=== PATIENT | female | born 1935 | race Caucasian/White ===

== ENCOUNTER → 2017-01-23 | Outpatient (CLI) | payer MEDICARE, BC ==
--- NOTE | 2017-01-24 09:44 | MR ---
EXAMINATION TYPE: MR lumbar spine wo con DATE OF EXAM: 01/23/2017 7:04 PM COMPARISON: Prior lumbar spine MRI 13 May 2015 HISTORY: Low back pain, stenosis, radiculopathy TECHNIQUE: Multiplanar, multisequence images of the lumbar spine were acquired. L1-L2: Mild facet arthropathy, no significant central stenosis or foraminal encroachment. Broad-based disc bulge causes minimal anterior mass effect on the thecal sac L2-L3: Circumferential posterior extension of endplate disc complex results in some left-sided forami nal encroachment greater than right, there is mild anterior mass effect on the thecal sac, minimal ce ntral stenosis. Facet arthropathy with hypertrophy of the ligamentum flavum encroaches on the lateral recesses L3-L4: Broad-based posterior disc bulge causes mild anterior mass effect on the thecal sac. Facet art hropathy with hypertrophy of the ligamentum flavum causes lateral recess stenosis, there is trefoil a ppearance of the thecal sac, circumferential extension encroaches somewhat on the foramina left great er than right. L4-L5: Facet arthropathy with hypertrophy of the ligamentum flavum causes a trefoil appearance of the thecal sac, small central posterior disc herniation combines with the listhesis to cause moderate sp inal stenosis similar to prior exam L5-S1: Facet arthropathy with hypertrophy of ligamentum flavum encroaches upon the lateral recess gre ater on the right, circumferential posterior disc bulge extends laterally and encroaches somewhat on the neural foramina greater on the right as on prior, there is mild anterior mass effect on the theca l sac and possibly on the proximal S1 nerve roots Lumbar segments are intact. No paraspinal masses are identified. Conus medullaris has a normal appe arance. Anterolisthesis grade 1 L4-5 is again noted. There is multilevel spondylosis. Loss of disc he ight and signal at the intervertebral levels with endplate discogenic marrow signal change is again s een. There is a spinal curvature. The conus is at T12. Superior endplate L2 shows a Schmorl's node to the right of midline as on prior. IMPRESSION: Spinal stenosis most significant at L4-5, multilevel degenerative disc disease and facet arthropathy, foraminal encroachment as described. Findings are similar to prior exam.
== END | disposition home or self-care (01) ==
LOC: RADMRIMAIN 18:14
PROVIDERS: ATTEND Physical Medicine & Rehabilitation
DX: M48.06 Spinal stenosis, lumbar region (principal); M51.36 Other intervertebral disc degeneration, lumbar region; M46.96 Unspecified inflammatory spondylopathy, lumbar region
CPT/HCPCS: 72148

== ENCOUNTER → 2017-02-14 | Outpatient (CLI) | payer MEDICARE, BC ==
[2017-02-14 17:07] LABS: Calcium 9.5 mg/dL (8.4-10.2); Potassium 5.4 mmol/L (3.5-5.1)
--- NOTE | 2017-02-14 18:46 | CT ---
EXAMINATION TYPE: CT abdomen pelvis w con DATE OF EXAM: 02/14/2017 6:32 PM COMPARISON: 01/28/2015 HISTORY: Patient complains of generalized abdominal pain and right sided abdominal mass. CT DLP: 397.5 mGycm Automated exposure control for dose reduction was used. TECHNIQUE: Helical acquisition of images was performed from the lung bases through the pelvis. CONTRAST: Performed with Oral Contrast and with IV Contrast, patient injected with 100 mL of Omnipaque 300. FINDINGS: Lung bases are clear of consolidation. There is no pleural effusion. Abdominal aorta is atheromatous. There are clips from cholecystectomy. Spleen appears normal. There is no pancreatic mass. There are i s no discrete liver defect. There is no retroperitoneal adenopathy. Kidneys show satisfactory contras t opacification. There is no hydronephrosis. There is no adrenal mass. There is apparent aortoiliac s tent. Bladder distends smoothly. I see no evidence of a bowel obstruction. There is evidence for minimal wa ll thickening involving the sigmoid colon. There are no dilated loops. There is some retained fecal m aterial in the transverse colon and right colon. The bony structures are intact. There is no compression fracture in the lumbar spine. IMPRESSION: ATHEROSCLEROTIC VASCULAR DISEASE. MILD CONSTIPATION. MINIMAL SIGMOID COLON WALL THICKENING THAT IS LE SS NOTICEABLE THAN OLD CT SCAN OF 01/28/2015. THIS COULD RELATE TO SOME PERSISTENT MILD COLITIS. THERE ARE SURGICAL CLIPS ON THE ANTERIOR ABDOMINAL WALL AND FOCAL THICKENING ON THE RIGHT SIDE IN THE MID ABDOMEN THAT COULD RELATE TO SOME SCAR TISSUE THAT IS PALPABLE DUE TO DECREASED SUBCUTANEOUS FAT COMPARED TO THE OLD EXAM.
== END | disposition home or self-care (01) ==
LOC: RADCTMAIN 16:23
PROVIDERS: ATTEND Internal Medicine
DX: R10.84 Generalized abdominal pain (principal); R63.4 Abnormal weight loss; Z98.890 Other specified postprocedural states
CPT/HCPCS: 80048; 74177; 36415; Q9967

== ENCOUNTER 2017-03-01 11:59 | Day surgery (SDC) | payer MEDICARE, BC ==
[2017-02-27 13:58] VITALS: BMI 23.6
[~2017-03-01 11:59] MED LIST: LACTATED RINGERS 1,000 ML IV SCH; LIDOCAINE 1% 20 ML VIAL (10MG/ML) FOR IV START INTRADERMA PRN
[2017-03-01 12:20] VITALS: RESP 16; TEMP 98.1
[2017-03-01] MEDS ORDERED: PROPOFOL 10 MG/ML 20 ML VIAL IV ONE (12:47)
--- NOTE | 2017-03-01 13:18 | P.PCN ---
Date of Procedure: 03/01/17 Procedure(s) Performed: Brief history: Patient is a pleasant 81-year-old white female, scheduled for an elective upper endoscopy as well as colonoscopy as a part of evaluation of abdominal pain, abdominal bloating and progressive weight loss of 20 pounds in the last 6 months duration. She does have long-standing history of ulcerative colitis which appears to be in clinical remission. She is not on any maintenance medications for the last 2 years. Procedure performed: Esophagogastroduodenoscopy with biopsy Colonoscopy with biopsy Preoperative diagnosis: Abdominal pain, abdominal bloating Progressive weight loss Long-standing history of ulcerative colitis Anesthesia: MAC Procedure: After informed consent was obtained from the patient was brought into the endoscopy unit and IV sedation was administered by anesthesia under continuous monitoring. Initially upper endoscopy was done. The Olympus GF 160 video endoscope was inserted inserted into the mouth and esophagus intubated without any difficulty and was gradually advanced into the stomach and duodenum and carefully examined. The bulb and second part of the duodenum appeared normal. The scope was then withdrawn into the stomach adequately insufflated with air and upon careful examination the antrum and body, cardia and fundus appeared normal. The scope was then withdrawn into the esophagus. The GE junction was located at 40 cm to the incisors. It appeared regular with no erythema erosions or ulcerations. Rest of the esophagus appeared normal. Patient tolerated the procedure well. At this time the patient continued to remain sedation. Initial digital rectal examination was normal. Olympus CF 160 video colonoscope was then inserted into the rectum and gradually advanced to the cecum without any difficulty. Careful examination was performed as the scope was gradually being withdrawn. The prep was excellent. The cecum, ascending colon, transverse colon, descending colon, appeared normal. There was mild colitis noted in the sigmoid colon and rectum. In the mid rectum there was a thick pedunculated, 3-4 cm polypoid lesion identified with central ulceration and multiple biopsies were done from this area to rule out neoplasm. Retroflexion was performed in the rectum and no lesions were noted. Patient tolerated the procedure well. Impression: 1. Upper endoscopy revealed mild antral gastritis. 2. Colonoscopy revealed mild active colitis involving the rectum and sigmoid colon and rectal polypoid lesion measuring 3-4 cm in size with a thick peduncular, status post multiple biopsies to rule out neoplasm. Recommendations: Findings of this examination were discussed with the patient as well as her family. She was advised to follow with the biopsy results. She'll be seen in office in one to 2 weeks.
[2017-03-01 13:58] VITALS: BP 136/64; PULSE 67
== END 2017-03-01 14:19 | disposition home or self-care (01) ==
LOC: ORWHC2ENDO 11:59
PROVIDERS: ATTEND Internal Medicine Gastroenterology
DX: K51.20 Ulcerative (chronic) proctitis without complications (principal); K52.9 Noninfective gastroenteritis and colitis, unspecified; K29.50 Unspecified chronic gastritis without bleeding; K62.1 Rectal polyp; Z79.02 Long term (current) use of antithrombotics/antiplatelets; Z79.891 Long term (current) use of opiate analgesic; Z79.899 Other long term (current) drug therapy; R63.4 Abnormal weight loss; Z88.1 Allergy status to other antibiotic agents; Z88.8 Allergy status to other drugs, medicaments and biological substances; I25.10 Atherosclerotic heart disease of native coronary artery without angina pectoris; I10 Essential (primary) hypertension; E78.5 Hyperlipidemia, unspecified; Z87.891 Personal history of nicotine dependence; I73.9 Peripheral vascular disease, unspecified; Z86.73 Personal history of transient ischemic attack (TIA), and cerebral infarction without residual deficits; Z87.11 Personal history of peptic ulcer disease; Z95.1 Presence of aortocoronary bypass graft
CPT/HCPCS: 88305; 88342; 45380; 43239; J2704

== ENCOUNTER 2017-05-10 07:59 | Day surgery (SDC) | payer MEDICARE, BC ==
[2017-05-09 10:19] VITALS: BMI 23.6
[2017-05-10] MEDS ORDERED: NA PHOS,M-B/NA PHOS,DI-BA 133 ML ENEMA RECTAL ONE ×2 (09:00→09:30)
[2017-05-10 09:06] VITALS: RESP 16; TEMP 97.1
[2017-05-10] MEDS ORDERED: PROPOFOL 10 MG/ML 20 ML VIAL IV ONE (10:04)
--- NOTE | 2017-05-10 10:39 | P.PCN ---
Date of Procedure: 05/10/17 Preoperative Diagnosis: Postoperative Diagnosis: Procedure(s) Performed: BRIEF HISTORY: Patient is a 81-year-old pleasant white female, scheduled for an elective flexible sigmoidoscopy as a part of evaluation of rectal bleeding for the last few weeks duration. She does have long-standing history of ulcerative colitis diagnosed many years ago. She recently had a colonoscopy 9 weeks ago and was noted to have active colitis involving the rectal sigmoid colon and a large 3 cm polyp in the proximal rectum which was biopsied. The biopsies revealed inflammatory polyp with no evidence of dysplasia. The patient was treated with steroids for 6 weeks and initially the symptoms resolve however after she stopped the steroids about 3 weeks ago she started having more rectal bleeding. She does have history of atrial fibrillation and has been on the left was which has been on hold for the last 2 days. She is scheduled for a flexible sigmoidoscopy for endoscopy polypectomy of the rectal polyp. PROCEDURE PERFORMED: Flexible sigmoidoscopy with snare polypectomy and resolution clip placement. PREOPERATIVE DIAGNOSIS: History of ulcerative colitis, large rectal polyp noted on recent colonoscopy 2 months ago IV sedation per Anesthesia. PROCEDURE: After informed consent was obtained, the patient, was brought into the endoscopy unit. IV sedation was administered by Anesthesia under continuous monitoring. Digital rectal examination was normal. Initially the Olympus CF- 160 flexible video colonoscope was then inserted in the rectum, gradually advanced into the splenic flexure. Careful examination was performed as the scope was gradually being withdrawn. Descending colon, sigmoid colon, and rectum had mucosal erythema and friability consistent with active colitis. In the mid rectum there was a large 3-4 cm polyp identified which was very friable and oozing. Proceed with piecemeal snare polypectomy and complete polypectomy was accomplished. Following the polypectomy there was brisk oozing noted at the base of the polyp and hence resolution clips were placed and total of 3 clips were placed into good hemostasis was achieved. There was active colitis involving the rectum also. Retroflexion was performed in the rectum and no lesions were seen. The patient tolerated the procedure well. IMPRESSION: Active left-sided colitis 3 cm friable polyp in the midrectum status post piecemeal snare polypectomy as described above with some bleeding post polypectomy, status post resolution clip placement with good hemostasis RECOMMENDATIONS: Findings of this examination were discussed with the patient as well as her family. She was advised to hold off on the eliquis for 3 more days. Since she does have active colitis I will start her back on prednisone 30 mg daily and she will be advised to taper it by 5 mg every 2 weeks. She will continue on Lialda 4 tablets daily. She'll be seen in the office in 4 weeks. Implants: Indications for Procedure: Operative Findings: Description of Procedure:
[2017-05-10 10:54] VITALS: BP 166/71; PULSE 72
== END 2017-05-10 11:22 | disposition home or self-care (01) ==
LOC: ORWHC2ENDO 07:59
PROVIDERS: ATTEND Internal Medicine Gastroenterology
DX: K62.1 Rectal polyp (principal); K52.9 Noninfective gastroenteritis and colitis, unspecified; Z87.19 Personal history of other diseases of the digestive system; K51.90 Ulcerative colitis, unspecified, without complications; Z86.010 Personal history of colon polyps; I48.91 Unspecified atrial fibrillation; I10 Essential (primary) hypertension; E78.5 Hyperlipidemia, unspecified; I25.10 Atherosclerotic heart disease of native coronary artery without angina pectoris; Z86.73 Personal history of transient ischemic attack (TIA), and cerebral infarction without residual deficits; Z79.01 Long term (current) use of anticoagulants; Z79.891 Long term (current) use of opiate analgesic; Z79.899 Other long term (current) drug therapy; Z91.09 Other allergy status, other than to drugs and biological substances
CPT/HCPCS: 88305; 45338; J2704; 45334

== ENCOUNTER 2017-07-10 22:08 | Inpatient (IN) | payer MEDICARE, BC ==
[2017-07-10] MEDS ORDERED: MECLIZINE 12.5 MG TAB PO STA (22:41)
[2017-07-10 22:55] LABS: Basophils # (A) 0.1 k/uL (0-0.2); Basophils % (A) 1 %; CH 30.1; CHCM 33.7; Eosinophils # (A) 0.6 k/uL (0-0.7); Eosinophils % (A) 6 %; HCT 36.5 % (34.0-46.0); HDW 2.55; HGB 11.9 gm/dL (11.4-16.0); Luc # (Auto) 0.34; Luc % (Auto) 3; Lymphocytes % (A) 19 %; MCH 29.3 pg (25.0-35.0); MCHC 32.7 g/dL (31.0-37.0); MCV 89.7 fL (80.0-100.0); Mean Platelet Volume 8.4; Monocytes # (A) 0.6 k/uL (0-1.0); Monocytes % (A) 6 %; Neutrophils # (A) 6.5 k/uL (1.3-7.7); Neutrophils % (A) 65 %; RBC 4.07 m/uL (3.80-5.40); RDW 14.8 % (11.5-15.5); WBC 10.1 k/uL (3.8-10.6); WBC (Perox) 10.41
[2017-07-10 22:59] LABS: INR 1.1 (<1.2)
--- NOTE | 2017-07-10 23:06 | ED ---
General Adult HPI - General Chief complaint: Dizziness Stated complaint: off balance/nausea/throat problem Time Seen by Provider: 07/10/17 22:16 Source: patient, family, RN notes reviewed Mode of arrival: wheelchair Limitations: no limitations - History of Present Illness Initial comments: 81-year-old female presents for evaluation of lightheadedness, dizziness, and nausea. Patient was in bed, she did move her head and began feeling very dizzy with blurred vision. She has a sensation of objects were moving. She had no vomiting but significant nausea. Patient has past medical history of CVA. According to her daughter she has had some symptoms of lightheadedness for several months. Patient does report a left-sided chest pain which was lateral sharp in nature, worse with movement. Denies any central chest pressure. Denies fever or chills. She has had some nasal congestion, and bilateral fullness in her ears. Denies any hearing changes. Denies any loss of vision. Denies focal weakness. - Related Data Home Medications Medication Instructions Recorded Confirmed Atorvastatin [Lipitor] 20 mg PO HS 11/25/14 07/10/17 Apixaban [Eliquis] 2.5 mg PO BID 02/27/17 07/10/17 Losartan Potassium [Cozaar] 100 mg PO DAILY 07/10/17 07/10/17 Allergies Allergy/AdvReac Type Severity Reaction Status Date / Time ciprofloxacin HCl Allergy Mild Itching Verified 07/10/17 22:43 [From Cipro] adhesive AdvReac Mild Itching Verified 07/10/17 22:43 Review of Systems ROS Statement: Those systems with pertinent positive or pertinent negative responses have been documented in the HPI. ROS Other: All systems not noted in ROS Statement are negative. Past Medical History Past Medical History: Coronary Artery Disease (CAD), CVA/TIA, GI Bleed, Hearing Disorder / Deafness, Hyperlipidemia, Hypertension, Musculoskeletal Disorder, Osteoarthritis (OA) Additional Past Medical History / Comment(s): PVD. PEPTIC ULCER DISEASE. ULCERATIVE COLITIS. 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 History of Any Multi-Drug Resistant Organisms: None Reported Past Surgical History: Appendectomy, Coronary Bypass/CABG, Hysterectomy, Joint Replacement, Tonsillectomy Additional Past Surgical History / Comment(s): Carotid Artery on Left. BILATERAL STENTS FOR PVD. QUAD CABG 1995. COLONOSCOPY, EGD. LT SHOULDER REPLACEMENT. polyp removed from rectum Past Anesthesia/Blood Transfusion Reactions: No Reported Reaction Past Psychological History: No Psychological Hx Reported Smoking Status: Former smoker Past Alcohol Use History: None Reported Past Drug Use History: None Reported - Past Family History Sister(s) Family Medical History: Cancer Father Family Medical History: No Reported History Additional Family Medical History / Comment(s): . General Exam Limitations: no limitations General appearance: alert, in no apparent distress Head exam: Present: atraumatic, normocephalic Eye exam: Present: normal appearance, PERRL, EOMI ENT exam: Present: mucous membranes moist, TM's normal bilaterally Neck exam: Present: normal inspection. Absent: tenderness, meningismus Respiratory exam: Present: normal lung sounds bilaterally. Absent: respiratory distress Cardiovascular Exam: Present: regular rate, irregular rhythm GI/Abdominal exam: Present: soft. Absent: distended, tenderness Extremities exam: Present: normal inspection, normal capillary refill. Absent: pedal edema Neurological exam: Present: alert, oriented X3, CN II-XII intact, motor sensory deficit, other (Left [id number]-[id number] ataxia) Psychiatric exam: Present: normal affect, normal mood Skin exam: Present: warm, dry. Absent: cyanosis, diaphoretic Course Vital Signs 07/10/17 07/10/17 07/11/17 22:10 23:10 00:19 Temperature 97.6 F Pulse Rate 86 71 76 Respiratory 18 16 17 Rate Blood Pressure 155/66 141/59 151/75 O2 Sat by Pulse 98 99 97 Oximetry EKG Findings - EKG Comments: EKG Findings:: EKG shows sinus rhythm with PVCs and PACs, ventricular rate 81, ID interval 124, QRS duration 88, QTC 464, no signs of ischemia Medical Decision Making - Medical Decision Making 81 yo female presenting with chief complaint of vertigo and lightheadedness as well as nausea and vomiting. Patient's had these symptoms for several months. She does report some symptoms suggesting peripheral vertigo including ear fullness and some nasal congestion, however on examination she has finger-nose ataxia in the left upper extremity. She also has had symptoms for some time. This is concerning for central vertigo. She does have a history of previous CVA , CT does show encephalomalacia right occipital lobe. There is no intracranial hemorrhage or new acute infarction. Chest x-ray shows very mild pulmonary vascular congestion. Laboratory studies reveal normal white blood cell count and pulled, stable hemoglobin 11.9, initial troponin is 0.0-1 which is normal. This level will be repeated once to ensure stability. All of the laboratory studies are unremarkable. EKG shows no ST segment elevation or depression, there is PVCs and PACs. Vital signs are stable on the emergency department. Patient is given an aspirin and will be admitted for neurology evaluation. Diagnosis: Concern for central vertigo - Lab Data Result diagrams: 07/10/17 22:29 07/10/17 22:29 Lab Results 07/10/17 07/10/17 07/10/17 Range/Units 22:29 22:29 22:29 WBC 10.1 (3.8-10.6) k/uL RBC 4.07 (3.80-5.40) m/uL Hgb 11.9 (11.4-16.0) gm/dL Hct 36.5 (34.0-46.0) % MCV 89.7 (80.0-100.0) fL MCH 29.3 (25.0-35.0) pg MCHC 32.7 (31.0-37.0) g/dL RDW 14.8 (11.5-15.5) % Plt Count 222 (150-450) k/uL Neutrophils % 65 % Lymphocytes % 19 % Monocytes % 6 % Eosinophils % 6 % Basophils % 1 % Neutrophils # 6.5 (1.3-7.7) k/uL Lymphocytes # 2.0 (1.0-4.8) k/uL Monocytes # 0.6 (0-1.0) k/uL Eosinophils # 0.6 (0-0.7) k/uL Basophils # 0.1 (0-0.2) k/uL PT (9.0-12.0) sec INR (<1.2) Sodium 137 (137-145) mmol/L Potassium 4.3 (3.5-5.1) mmol/L Chloride 106 (98-107) mmol/L Carbon Dioxide 24 (22-30) mmol/L Anion Gap 7 mmol/L BUN 17 (7-17) mg/dL Creatinine 0.90 (0.52-1.04) mg/dL Est GFR (MDRD) Af Amer >60 (>60 ml/min/1.73 sqM) Est GFR (MDRD) Non-Af 60 (>60 ml/min/1.73 sqM) Glucose 111 H (74-99) mg/dL Plasma Lactic Acid Daryl 0.9 (0.7-2.0) mmol/L Calcium 8.9 (8.4-10.2) mg/dL Magnesium 1.8 (1.6-2.3) mg/dL Total Bilirubin 0.3 (0.2-1.3) mg/dL AST 16 (14-36) U/L ALT 25 (9-52) U/L Alkaline Phosphatase 68 (38-126) U/L Troponin I (0.000-0.034) ng/mL Total Protein 5.9 L (6.3-8.2) g/dL Albumin 3.2 L (3.5-5.0) g/dL Urine Color Urine Appearance (Clear) Urine pH (5.0-8.0) Ur Specific [place] (1.001-1.035) Urine Protein (Negative) Urine Glucose (UA) (Negative) Urine Ketones (Negative) Urine Blood (Negative) Urine Nitrite (Negative) Urine Bilirubin (Negative) Urine Urobilinogen (<2.0) mg/dL Ur Leukocyte Esterase (Negative) Urine RBC (0-5) /hpf Urine WBC (0-5) /hpf Urine Bacteria (None) /hpf Urine Mucus (None) /hpf 07/10/17 07/10/17 07/10/17 Range/Units 22:29 22:29 23:55 WBC (3.8-10.6) k/uL RBC (3.80-5.40) m/uL Hgb (11.4-16.0) gm/dL Hct (34.0-46.0) % MCV (80.0-100.0) fL MCH (25.0-35.0) pg MCHC (31.0-37.0) g/dL RDW (11.5-15.5) % Plt Count (150-450) k/uL Neutrophils % % Lymphocytes % % Monocytes % % Eosinophils % % Basophils % % Neutrophils # (1.3-7.7) k/uL Lymphocytes # (1.0-4.8) k/uL Monocytes # (0-1.0) k/uL Eosinophils # (0-0.7) k/uL Basophils # (0-0.2) k/uL PT 11.0 (9.0-12.0) sec INR 1.1 (<1.2) Sodium (137-145) mmol/L Potassium (3.5-5.1) mmol/L Chloride (98-107) mmol/L Carbon Dioxide (22-30) mmol/L Anion Gap mmol/L BUN (7-17) mg/dL Creatinine (0.52-1.04) mg/dL Est GFR (MDRD) Af Amer (>60 ml/min/1.73 sqM) Est GFR (MDRD) Non-Af (>60 ml/min/1.73 sqM) Glucose (74-99) mg/dL Plasma Lactic Acid Daryl (0.7-2.0) mmol/L Calcium (8.4-10.2) mg/dL Magnesium (1.6-2.3) mg/dL Total Bilirubin (0.2-1.3) mg/dL AST (14-36) U/L ALT (9-52) U/L Alkaline Phosphatase (38-126) U/L Troponin I 0.021 (0.000-0.034) ng/mL Total Protein (6.3-8.2) g/dL Albumin (3.5-5.0) g/dL Urine Color Yellow Urine Appearance Clear (Clear) Urine pH 5.0 (5.0-8.0) Ur Specific [place] 1.009 (1.001-1.035) Urine Protein Negative (Negative) Urine Glucose (UA) Negative (Negative) Urine Ketones Negative (Negative) Urine Blood Negative (Negative) Urine Nitrite Negative (Negative) Urine Bilirubin Negative (Negative) Urine Urobilinogen <2.0 (<2.0) mg/dL Ur Leukocyte Esterase Small H (Negative) Urine RBC <1 (0-5) /hpf Urine WBC 3 (0-5) /hpf Urine Bacteria Rare H (None) /hpf Urine Mucus Rare H (None) /hpf Disposition Clinical Impression: Vertigo Disposition: ADMITTED IP TO THIS [facility] Condition: Stable Referrals: Champ Merritt MD [Primary Care Provider] - 1-2 days Decision to Admit Reason: Admit from EC Decision Date: 07/11/17 Decision Time: 00:36
[2017-07-10 23:07] LABS: ALT 25 U/L (9-52); AST 16 U/L (14-36); Alkaline Phosphatase 68 U/L (38-126); Anion Gap 7 mmol/L; Blood Urea Nitrogen 17 mg/dL (7-17); Calcium 8.9 mg/dL (8.4-10.2); Carbon Dioxide 24 mmol/L (22-30); Chloride 106 mmol/L (98-107); Glucose 111 mg/dL (74-99); Magnesium 1.8 mg/dL (1.6-2.3); Non-African American GFR(MDRD) 60 (>60 ml/min/1.73 sqM); Potassium 4.3 mmol/L (3.5-5.1); Sodium 137 mmol/L (137-145); Total Bilirubin 0.3 mg/dL (0.2-1.3); Total Protein 5.9 g/dL (6.3-8.2)
--- NOTE | 2017-07-10 23:39 | CT ---
EXAM: CT Head Without Intravenous Contrast CLINICAL HISTORY: Syncope, weakness TECHNIQUE: Axial computed tomography images of the head/brain without intravenous contrast. DLP is 1036.00 mGy-cm. This CT exam was performed using one or more of the following dose reduction techniques: automated exposure control, adjustment of the mA and/or kV according to patient size, and/or use of iterative reconstruction technique. COMPARISON: 11/25/2014. FINDINGS: Brain: New encephalomalacic changes are seen involving the right occipital lobe, likely from prior infarct. No evidence of an acute transcortical infarct or acute intracranial hemorrhage. Patchy and confluent areas of decreased attenuation are seen in the bilateral periventricular and subcortical white matter, essentially unchanged, likely representing moderate/severe microangiopathy. Age appropriate senescent changes seen. No edema. Ventricles: Unremarkable. No pathologic ventriculomegaly. Bones/joints: Unremarkable. No acute fracture. Soft tissues: Unremarkable. Vasculature: The carotid siphons are calcified. Sinuses: Mild mucosal thickening of the ethmoid air cells is suspected, similar to prior study, which may represent sinus disease. Mastoid air cells: Unremarkable as visualized. No mastoid effusion. IMPRESSION: New encephalomalacic changes involving the right occipital lobe, likely from prior infarct. Essentially unchanged moderate/severe microangiopathy. No definitive evidence of acute transcortical infarct. No evidence of acute intracranial hemorrhage. If there is further clinical concern, consider short-term interval CT of the head versus MRI of the brain for follow-up. Mild ethmoid sinusitis likely present, similar to prior study.
--- NOTE | 2017-07-10 23:51 | XR ---
EXAM: XR Chest, 2 Views CLINICAL HISTORY: Reason: Syncope TECHNIQUE: Frontal and lateral views of the chest. COMPARISON: 01/29/2015 FINDINGS: Lungs: Hazy prominence of the interstitial markings with mild peribronchial cuffing is seen, likely representing mild pulmonary edema/CHF. Underlying emphysema is again suggested. Pleural space: Unremarkable. No pneumothorax. Heart: Patient is again noted to be status post CABG. The heart is likely at upper limits of normal. Mediastinum: Unremarkable. Bones/joints: Patient status post left total shoulder arthroplasty. Unchanged right shoulder. Vasculature: Unchanged atherosclerotic )vascular calcifications involving the visualized aorta. Tubes, lines and devices: Monitor leads overlie the chest limiting evaluation. IMPRESSION: Patient status post CABG. The heart appears to be at the upper limits of normal. Hazy prominence of the interstitial markings with mild peribronchial cuffing, likely representing mild pulmonary edema/CHF, not seen on prior study.
[2017-07-11] MEDS ORDERED: ASPIRIN 325 MG TAB PO STA (00:05)
[2017-07-11 00:23] LABS: Appearance,Urine Clear (Clear); Bacteria,Urine Rare /hpf; Bilirubin,Urine Negative (Negative); Glucose,Urine (UA) Negative (Negative); Ketones,Urine Negative (Negative); Leukocyte Esterase,Urine Small (Negative); Mucus,Urine Rare /hpf; Nitrite,Urine Negative (Negative); Particle Count 4796; Protein,Urine Negative (Negative); RBC,Urine <1 /hpf (0-5); Specific Gravity,Urine 1.009 (1.001-1.035); UA Billing (MACRO vs. MICRO) MICRO; Urobilinogen,Urine <2.0 mg/dL (<2.0); WBC,Urine 3 /hpf (0-5)
[2017-07-11] MEDS ORDERED: ACETAMINOPHEN TAB 325 MG TAB PO PRN (00:29)
[2017-07-11] MEDS ORDERED: ONDANSETRON 4 MG/2 ML VIAL IVP PRN (00:29)
[2017-07-11] MEDS ORDERED: NALOXONE 0.4 MG/ML 1 ML VIAL IV PRN (00:29)
[2017-07-11] MEDS ORDERED: oxyCODONE-APAP 5-325MG 1 EACH TAB PO PRN (00:29)
[2017-07-11] MEDS ORDERED: SODIUM CHLORIDE 0.9% 1,000 ML IV SCH (00:30)
[2017-07-11 01:18] VITALS: RESP 18
[2017-07-11 02:03] VITALS: BMI 24.5
[2017-07-11 13:21] VITALS: BP 166/69; PULSE 86; TEMP 97.2
--- NOTE | 2017-07-11 17:27 | P.HPIM ---
History of Present Illness H&P Date: 07/11/17 (Discharge summary as well) Chief Complaint: Dizziness 81-year-old female presents to the emergency room with complaints of an isolated incident of the dizziness which was noted as patient was finally readjust herself in bed last night. Patient noted this vague episode of the room spinning around her self and feeling of her head getting bigger. Patient however rested back and was able to be comfortable and lost her symptoms. Patient continued to have recurrent symptoms thereafter with any change in head positions Patient was able to ambulate in the hospital without much difficulty. Today patient states that she is back to her baseline the symptoms lasted less than a few minutes. States that she continues to have these symptoms with any change in the position however are significantly milder Patient has a history of a CVA in the past with some residual symptoms of facial disorientation and difficulty with the finding words. 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 A computed tomography scan in the emergency room was noted to have encephalomalacia. However no acute infarct was noted there is some concern for vascular disease At this time patient denies having any headaches change in vision from her baseline, nausea chest pain vomiting diarrhea Review of systems 14 point review of systems was done nonpertinent then all as mentioned above Physical exam Gen. 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 #4 dyslipidemia #5 hypertension with a pressure slightly elevated however patient is also slightly agitated and is anxious to go home #6 history of a GI bleed Plan Patient's symptoms at this time appeared to be secondary to vertigo is able to ambulate without much difficulty no focal deficits are noted does not appear to have central vertigo patient has been investigated in the past and was monitored in the hospital close to 20 hours Discussed in regards to her progressive worsening of her higher function 1 differential could be vascular dementia due to the rapidity of her symptoms This would be deferred to an outpatient follow-up with her neurologist. We'll defer use of an antiplatelet agent as well to that time patient is only on Eliquis this is likely secondary to the previous history of a suspected GI bleed We'll be discharged home in stable condition CODE STATUS during the admission was DO NOT RESUSCITATE Past Medical History Past Medical History: Coronary Artery Disease (CAD), CVA/TIA, GI Bleed, Hearing Disorder / Deafness, Hyperlipidemia, Hypertension, Musculoskeletal Disorder, Osteoarthritis (OA) Additional Past Medical History / Comment(s): PVD. PEPTIC ULCER DISEASE. ULCERATIVE COLITIS. 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 History of Any Multi-Drug Resistant Organisms: None Reported Past Surgical History: Appendectomy, Coronary Bypass/CABG, Hysterectomy, Joint Replacement, Tonsillectomy Additional Past Surgical History / Comment(s): Carotid Artery on Left. BILATERAL STENTS FOR PVD. QUAD CABG 1995. COLONOSCOPY, EGD. LT SHOULDER REPLACEMENT. polyp removed from rectum Past Anesthesia/Blood Transfusion Reactions: No Reported Reaction Past Psychological History: No Psychological Hx Reported Smoking Status: Former smoker Past Alcohol Use History: None Reported Additional Past Alcohol Use History / Comment(s): SMOKED FOR 40 YEARS., QUIT IN 1991. STATES 1 PACK COULD LAST 1 MONTH. Past Drug Use History: None Reported - Past Family History Sister(s) Family Medical History: Cancer Father Family Medical History: No Reported History Additional Family Medical History / Comment(s): . Medications and Allergies Home Medications Medication Instructions Recorded Confirmed Type Atorvastatin [Lipitor] 20 mg PO HS 11/25/14 07/10/17 History Apixaban [Eliquis] 2.5 mg PO BID 02/27/17 07/10/17 History Losartan Potassium [Cozaar] 100 mg PO DAILY 07/10/17 07/10/17 History Allergies Allergy/AdvReac Type Severity Reaction Status Date / Time ciprofloxacin HCl Allergy Mild Itching Verified 07/10/17 22:43 [From Cipro] adhesive AdvReac Mild Itching Verified 07/10/17 22:43 Physical Exam Vitals: Vital Signs Temp Pulse Pulse Resp BP BP Pulse Ox 07/11/17 12:00 97.2 F L 86 18 166/69 96 07/11/17 08:00 96 F L 76 18 149/67 95 07/11/17 03:04 18 07/11/17 01:40 96.8 F L 79 18 167/67 95 07/11/17 01:16 98.4 F 69 18 156/67 97 07/11/17 00:19 76 17 151/75 97 07/10/17 23:10 71 16 141/59 99 07/10/17 22:10 97.6 F 86 18 155/66 98 Intake and Output 07/11/17 07/11/17 07/11/17 06:59 14:59 22:59 Intake Total 100 Balance 100 Intake: Intake, IV Titration 100 Amount Sodium Chloride 0.9% 1, 100 000 ml @ 20 mls/hr IV . Q24H [facility] Rx#:[id number] Other: # Voids 1 2 Weight 63 kg Results CBC & Chem 7: 07/10/17 22:29 07/10/17 22:29 Labs: Abnormal Lab Results - Last 24 Hours (Table) 07/10/17 07/10/17 Range/Units 22:29 23:55 Glucose 111 H (74-99) mg/dL Total Protein 5.9 L (6.3-8.2) g/dL Albumin 3.2 L (3.5-5.0) g/dL Ur Leukocyte Esterase Small H (Negative) Urine Bacteria Rare H (None) /hpf Urine Mucus Rare H (None) /hpf Thrombosis Risk Factor Assmnt - Choose All That Apply Any of the Below Risk Factors Present?: Yes Each Factor Represents 1 point: Swollen legs (current) Each Risk Factor Represents 3 Points: Age 75 years or older Each Risk Factor Represents 5 Points: Stroke (< 1 month) Thrombosis Risk Factor Assessment Total Risk Factor Score: 9 Thrombosis Risk Factor Assessment Level: High Risk
[2017-07-11] MEDS ORDERED: APIXABAN 2.5 MG TABLET PO SCH (21:00)
[2017-07-12] MEDS ORDERED: LOSARTAN 50 MG TAB PO SCH (09:00)
== END 2017-07-11 17:15 | disposition home or self-care (01) | DRG 149 ==
LOC: EC 22:08 → 6SEL 07-11 00:29
PROVIDERS: ADMIT Hospitalist; ATTEND Hospitalist
DX: H81.399 Other peripheral vertigo, unspecified ear (principal); G93.89 Other specified disorders of brain; I69.998 Other sequelae following unspecified cerebrovascular disease; I73.9 Peripheral vascular disease, unspecified; E78.5 Hyperlipidemia, unspecified; H91.90 Unspecified hearing loss, unspecified ear; I10 Essential (primary) hypertension; I25.10 Atherosclerotic heart disease of native coronary artery without angina pectoris; M19.90 Unspecified osteoarthritis, unspecified site; H53.9 Unspecified visual disturbance; Z66 Do not resuscitate; Z79.01 Long term (current) use of anticoagulants; Z79.899 Other long term (current) drug therapy; Z87.891 Personal history of nicotine dependence; Z95.1 Presence of aortocoronary bypass graft; Z96.612 Presence of left artificial shoulder joint; Z91.09 Other allergy status, other than to drugs and biological substances
CPT/HCPCS: 36415; 70450; 71020; 80053; 81001; 83605; 83735; 84484; 85025; 85610; 93005; 99285

== ENCOUNTER → 2017-09-11 | Outpatient (CLI) | payer MEDICARE, BC ==
--- NOTE | 2017-09-11 15:10 | MR ---
EXAMINATION TYPE: MR brain wo con DATE OF EXAM: 09/11/2017 1:38 PM COMPARISON: 11/26/2014 HISTORY: VERTIGO, MORALES FINDINGS: The ventricles, basal cisterns and sulci overlying the cerebral convexities are moderately enlarged. There is evidence of moderate confluent periventricular white matter ischemic demyelination. Remote occipital insults. Remote deep white matter insults are also noted. No acute edema is seen on diffusion weighted imaging. There is no evidence for midline shift or mass effect. Acute intracranial hemorrhage or extra-axial collection is not evident. The paranasal sinuses and mastoid air cells are well-aerated. Mucoperiosteal thickening of the ethmoi d air cells. IMPRESSION: Age-related atrophic and chronic small vessel ischemic change. No acute intracranial process at this time.
== END | disposition home or self-care (01) ==
LOC: RADMRIMAIN 12:49
PROVIDERS: ATTEND Psychiatry & Neurology Pain Medicine
DX: I67.82 Cerebral ischemia (principal); G31.9 Degenerative disease of nervous system, unspecified; H81.13 Benign paroxysmal vertigo, bilateral; Z88.1 Allergy status to other antibiotic agents; Z91.040 Latex allergy status
CPT/HCPCS: 70551

== ENCOUNTER 2019-12-15 05:29 | Inpatient (IN) | payer MEDICARE, BC ==
[2019-12-15] MEDS ORDERED: MORPHINE SULFATE 2 MG/ML SYRINGE IVP STA (06:18)
[2019-12-15] MEDS ORDERED: SODIUM CHLORIDE 0.9% 1,000 ML IV STA (06:18)
--- NOTE | 2019-12-15 06:28 | ED ---
Dizziness HPI - General Chief Complaint: Dizziness Stated Complaint: Dizziness, Fall Time Seen by Provider: 12/15/19 06:03 Source: patient, EMS, RN notes reviewed, old records reviewed Mode of arrival: EMS Limitations: no limitations - History of Present Illness Initial Comments: Patient is an 84-year-old female presents emergency Department after an episode of dizziness and fall. Patient is complaining of headache, questionable loss of consciousness. She is on blood thinner, L Antonio. Patient reports that she is now having some pain between her shoulder blades and back, and reports that she's had a productive cough for the past week. Patient states that she was not sitting on the ground for long. She also complains of some dysuria. - Related Data Home Medications Medication Instructions Recorded Confirmed Atorvastatin [Lipitor] 20 mg PO HS 11/25/14 07/10/17 Apixaban [Eliquis] 2.5 mg PO BID 02/27/17 07/10/17 Losartan Potassium [Cozaar] 100 mg PO DAILY 07/10/17 07/10/17 Allergies Allergy/AdvReac Type Severity Reaction Status Date / Time ciprofloxacin HCl Allergy Mild Itching Verified 07/10/17 22:43 [From Cipro] adhesive AdvReac Mild Itching Verified 07/10/17 22:43 Review of Systems ROS Statement: Those systems with pertinent positive or pertinent negative responses have been documented in the HPI. ROS Other: All systems not noted in ROS Statement are negative. Past Medical History Past Medical History: Coronary Artery Disease (CAD), CVA/TIA, GI Bleed, Hearing Disorder / Deafness, Hyperlipidemia, Hypertension, Musculoskeletal Disorder, Osteoarthritis (OA) Additional Past Medical History / Comment(s): PVD. PEPTIC ULCER DISEASE. ULCERATIVE COLITIS. 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 History of Any Multi-Drug Resistant Organisms: None Reported Past Surgical History: Appendectomy, Coronary Bypass/CABG, Hysterectomy, Joint Replacement, Tonsillectomy Additional Past Surgical History / Comment(s): Carotid Artery on Left. BILATERAL STENTS FOR PVD. QUAD CABG 1995. COLONOSCOPY, EGD. LT SHOULDER REPLACEMENT. polyp removed from rectum Past Anesthesia/Blood Transfusion Reactions: No Reported Reaction Past Psychological History: No Psychological Hx Reported Smoking Status: Former smoker Past Alcohol Use History: None Reported Past Drug Use History: None Reported - Past Family History Sister(s) Family Medical History: Cancer Father Family Medical History: No Reported History Additional Family Medical History / Comment(s): . General Exam - General Exam Comments Initial Comments: 84-year-old female. Alert and oriented 3. Limitations: no limitations General appearance: alert, in no apparent distress Head exam: Present: atraumatic, normocephalic, normal inspection Eye exam: Present: normal appearance, PERRL, EOMI. Absent: scleral icterus, conjunctival injection, periorbital swelling ENT exam: Present: normal exam, mucous membranes moist Neck exam: Present: normal inspection. Absent: tenderness, meningismus, lymphadenopathy Respiratory exam: Present: rhonchi, other (Wheezing). Absent: normal lung sounds bilaterally, respiratory distress, wheezes, rales, stridor Cardiovascular Exam: Present: regular rate, normal rhythm, normal heart sounds. Absent: systolic murmur, diastolic murmur, rubs, gallop, clicks GI/Abdominal exam: Present: soft, normal bowel sounds. Absent: distended, tenderness, guarding, rebound, rigid Extremities exam: Present: normal inspection, full ROM, normal capillary refill. Absent: tenderness, pedal edema, joint swelling, calf tenderness Back exam: Present: normal inspection Neurological exam: Present: alert, oriented X3, CN II-XII intact Psychiatric exam: Present: normal affect, normal mood Skin exam: Present: warm, dry, intact, normal color. Absent: rash Course Vital Signs 12/15/19 12/15/19 12/15/19 05:31 06:45 07:00 Temperature 98.9 F Pulse Rate 71 101 H 86 Respiratory 16 19 Rate Blood Pressure 115/68 136/68 136/68 O2 Sat by Pulse 95 90 L 87 L Oximetry 12/15/19 12/15/19 12/15/19 07:30 08:00 08:49 Temperature Pulse Rate 82 84 92 Respiratory 17 25 H Rate Blood Pressure 139/73 139/75 O2 Sat by Pulse 96 94 L Oximetry 12/15/19 09:05 Temperature Pulse Rate 92 Respiratory Rate Blood Pressure O2 Sat by Pulse Oximetry Medical Decision Making - Medical Decision Making 84-year-old female presents emergency department today for fall, syncopal episdoe and hitting head in her bathroom. She is on blood thinners questions that she had her head. CT of the brain and C-spine reviewed and negative for any fracture or intracranial hemorrhage. Patient reports she has been weak, with a bad cough as well as dysuria for the past 7 days. Patient at this time has evidence of urinary tract infection. EKG showed no ST elevation. The Patient did have an elevated troponin of 0.056. Initiated on heparin. She does have a significant productive cough. I did start the Patient on Rocephin for urinary tract infection, and concern for pneumonia. Chest x-ray was showing chronic changes without any acute process. She was given a breathing treatment did have some clearing of her congestion. Patient was given IV Solu-Medrol as well. At this time Patient will be admitted for UTI, weakness, syncopal episode and elevated troponin. Urine culture and blood culture were completed. All questions answered. - Lab Data Result diagrams: 12/15/19 06:00 12/15/19 06:00 Lab Results 12/15/19 12/15/19 12/15/19 Range/Units 06:00 06:00 06:00 WBC 7.7 (3.8-10.6) k/uL RBC 4.64 (3.80-5.40) m/uL Hgb 13.2 (11.4-16.0) gm/dL Hct 41.5 (34.0-46.0) % MCV 89.5 (80.0-100.0) fL MCH 28.6 (25.0-35.0) pg MCHC 31.9 (31.0-37.0) g/dL RDW 13.1 (11.5-15.5) % Plt Count 152 (150-450) k/uL Neutrophils % 82 % Lymphocytes % 7 % Monocytes % 5 % Eosinophils % 0 % Basophils % 3 % Neutrophils # 6.4 (1.3-7.7) k/uL Lymphocytes # 0.6 L (1.0-4.8) k/uL Monocytes # 0.4 (0-1.0) k/uL Eosinophils # 0.0 (0-0.7) k/uL Basophils # 0.2 (0-0.2) k/uL PT (9.0-12.0) sec INR (<1.2) APTT (22.0-30.0) sec Sodium 133 L (137-145) mmol/L Potassium 3.7 (3.5-5.1) mmol/L Chloride 104 (98-107) mmol/L Carbon Dioxide 19 L (22-30) mmol/L Anion Gap 10 mmol/L BUN 18 H (7-17) mg/dL Creatinine 0.83 (0.52-1.04) mg/dL Est GFR (CKD-EPI)AfAm 75 (>60 ml/min/1.73 sqM) Est GFR (CKD-EPI)NonAf 65 (>60 ml/min/1.73 sqM) Glucose 112 H (74-99) mg/dL Plasma Lactic Acid Daryl 1.0 (0.7-2.0) mmol/L Calcium 8.0 L (8.4-10.2) mg/dL Magnesium 1.8 (1.6-2.3) mg/dL Total Bilirubin 0.6 (0.2-1.3) mg/dL AST 39 H (14-36) U/L ALT 15 (4-34) U/L Alkaline Phosphatase 57 (38-126) U/L Troponin I (0.000-0.034) ng/mL Total Protein 5.6 L (6.3-8.2) g/dL Albumin 2.9 L (3.5-5.0) g/dL Urine Color Urine Appearance (Clear) Urine pH (5.0-8.0) Ur Specific [place] (1.001-1.035) Urine Protein (Negative) Urine Glucose (UA) (Negative) Urine Ketones (Negative) Urine Blood (Negative) Urine Nitrite (Negative) Urine Bilirubin (Negative) Urine Urobilinogen (<2.0) mg/dL Ur Leukocyte Esterase (Negative) Urine RBC (0-5) /hpf Urine WBC (0-5) /hpf Ur Squamous Epith Cells (0-4) /hpf Urine Bacteria (None) /hpf Urine Mucus (None) /hpf 12/15/19 12/15/19 12/15/19 Range/Units 06:00 06:00 07:35 WBC (3.8-10.6) k/uL RBC (3.80-5.40) m/uL Hgb (11.4-16.0) gm/dL Hct (34.0-46.0) % MCV (80.0-100.0) fL MCH (25.0-35.0) pg MCHC (31.0-37.0) g/dL RDW (11.5-15.5) % Plt Count (150-450) k/uL Neutrophils % % Lymphocytes % % Monocytes % % Eosinophils % % Basophils % % Neutrophils # (1.3-7.7) k/uL Lymphocytes # (1.0-4.8) k/uL Monocytes # (0-1.0) k/uL Eosinophils # (0-0.7) k/uL Basophils # (0-0.2) k/uL PT 10.3 (9.0-12.0) sec INR 1.0 (<1.2) APTT 29.6 (22.0-30.0) sec Sodium (137-145) mmol/L Potassium (3.5-5.1) mmol/L Chloride (98-107) mmol/L Carbon Dioxide (22-30) mmol/L Anion Gap mmol/L BUN (7-17) mg/dL Creatinine (0.52-1.04) mg/dL Est GFR (CKD-EPI)AfAm (>60 ml/min/1.73 sqM) Est GFR (CKD-EPI)NonAf (>60 ml/min/1.73 sqM) Glucose (74-99) mg/dL Plasma Lactic Acid Daryl (0.7-2.0) mmol/L Calcium (8.4-10.2) mg/dL Magnesium (1.6-2.3) mg/dL Total Bilirubin (0.2-1.3) mg/dL AST (14-36) U/L ALT (4-34) U/L Alkaline Phosphatase (38-126) U/L Troponin I 0.056 H* (0.000-0.034) ng/mL Total Protein (6.3-8.2) g/dL Albumin (3.5-5.0) g/dL Urine Color Yellow Urine Appearance Cloudy H (Clear) Urine pH 5.5 (5.0-8.0) Ur Specific [place] 1.026 (1.001-1.035) Urine Protein 1+ H (Negative) Urine Glucose (UA) Negative (Negative) Urine Ketones Negative (Negative) Urine Blood Moderate H (Negative) Urine Nitrite Positive H (Negative) Urine Bilirubin Negative (Negative) Urine Urobilinogen <2.0 (<2.0) mg/dL Ur Leukocyte Esterase Large H (Negative) Urine RBC 20 H (0-5) /hpf Urine WBC 46 H (0-5) /hpf Ur Squamous Epith Cells <1 (0-4) /hpf Urine Bacteria Many H (None) /hpf Urine Mucus Rare H (None) /hpf 12/15/19 07:03 EKG shows sinus rhythm with sinus arrhythmia occasional PVCs. Possible anterior infarct age indeterminate. Abnormal EKG. Jugular rate of 99 beats were minute. OK interval is 1:30 milliseconds. QRS duration is 96 ms. QT QTc is 372/477 ms. - Radiology Data Radiology results: report reviewed No acute fracture dislocation evident cervical spine. No acute cranial hemorrhage mass effect or midline shift. Chronic small vessel ischemia evidence of prior cerebral vascular accidents. Age-related atrophy. Disposition Clinical Impression: Syncope, NSTEMI (non-ST elevated myocardial infarction), UTI (urinary tract infection), Weakness, Cough Disposition: ADMITTED IP TO THIS HOSP Condition: Stable Is patient prescribed a controlled substance at d/c from ED?: No Referrals: Champ Merritt MD [Primary Care Provider] - 1-2 days Time of Disposition: 09:44
[2019-12-15 06:32] LABS: Basophils # (A) 0.2 k/uL (0-0.2); Basophils % (A) 3 %; Eosinophils % (A) 0 %; HCT 41.5 % (34.0-46.0); HGB 13.2 gm/dL (11.4-16.0); Lymphocytes # (A) 0.6 k/uL (1.0-4.8); Lymphocytes % (A) 7 %; MCH 28.6 pg (25.0-35.0); MCHC 31.9 g/dL (31.0-37.0); MCV 89.5 fL (80.0-100.0); Mean Platelet Volume 8.6; Monocytes # (A) 0.4 k/uL (0-1.0); Monocytes % (A) 5 %; Neutrophils # (A) 6.4 k/uL (1.3-7.7); Neutrophils % (A) 82 %; Platelet Count 152 k/uL (150-450); RBC 4.64 m/uL (3.80-5.40); RDW 13.1 % (11.5-15.5); WBC 7.7 k/uL (3.8-10.6)
[2019-12-15 06:41] LABS: Albumin 2.9 g/dL (3.5-5.0); Magnesium 1.8 mg/dL (1.6-2.3); Partial Thromboplastin Time 29.6 sec (22.0-30.0); Potassium 3.7 mmol/L (3.5-5.1); Prothrombin Time 10.3 sec (9.0-12.0); Total Bilirubin 0.6 mg/dL (0.2-1.3); Total Protein 5.6 g/dL (6.3-8.2)
[2019-12-15 07:47] LABS: Appearance,Urine Cloudy (Clear); Bacteria,Urine Many /hpf; Bilirubin,Urine Negative (Negative); Blood,Urine Moderate (Negative); Color,Urine Yellow; Glucose,Urine (UA) Negative (Negative); Ketones,Urine Negative (Negative); Leukocyte Esterase,Urine Large (Negative); Mucus,Urine Rare /hpf; Nitrite,Urine Positive (Negative); PH, Urine 5.5 (5.0-8.0); Protein,Urine 1+ (Negative); RBC,Urine 20 /hpf (0-5); Specific Gravity,Urine 1.026 (1.001-1.035); Squamous Epithelial Cell,Urine <1 /hpf (0-4); Urobilinogen,Urine <2.0 mg/dL (<2.0); WBC,Urine 46 /hpf (0-5)
[2019-12-15] MEDS ORDERED: cefTRIAXone IN SWFI 1,000 MG/10 ML SYRINGE IVP STA (08:10)
--- NOTE | 2019-12-15 08:27 | CT ---
EXAMINATION TYPE: CT brain meganine wo con DATE OF EXAM: 12/15/2019 COMPARISON: CT brain 07/10/2017 HISTORY: Fall loss of consciousness CT DLP: 1537.7 mGycm Automated exposure control for dose reduction was used. TECHNIQUE: CT scan of the head and cervical spine are performed without contrast. FINDINGS: There is no acute intracranial hemorrhage, mass effect, or midline shift identified. The ventricles and sulci are within normal limits in size. The globes are intact and the visualized sin uses are clear. There are cerebral vascular calcifications. Cortical atrophy is present. Encephalomal acia suspected at the inferior aspect of left cerebellar hemisphere is an interval change, bilateral occipital lobes show stable low-attenuation. Periventricular white matter shows patchy low attenuatio n. Atrophy shows a similar appearance. Cervical spine is visualized in its entirety from C1 through upper thoracic levels and demonstrates n ear anatomic alignment without evidence of acute fracture or dislocation. There is multilevel spondyl osis. Multilevel facet arthropathy changes present. Prevertebral soft tissue appears within normal l imits. The C1-C2 articulation is unremarkable. Emphysematous changes are present in the upper lobes . Dense atherosclerotic calcifications present in carotid bulbs. IMPRESSION: 1. There is no acute fracture or dislocation evident in the cervical spine. 2. No acute intracranial hemorrhage, mass effect, or midline shift is seen. Chronic small vessel isch emia, evidence of prior cerebrovascular accidents. Age-related atrophy.
[2019-12-15] MEDS ORDERED: methylPREDNISolone SOD SUCCI 125 MG/2 ML VIAL IV STA (08:35)
[2019-12-15] MEDS ORDERED: IPRATROPIUM-ALBUTEROL 3 ML NEB INHALATION STA (08:35)
[2019-12-15] MEDS ORDERED: HEPARIN SODIUM,PORCINE 5,000 UNIT/ML 1 ML VIAL IV PRN (08:38)
[2019-12-15] MEDS ORDERED: HEPARIN SODIUM,PORCINE 5,000 UNIT/ML 1 ML VIAL IV ONE (08:38)
--- NOTE | 2019-12-15 09:27 | XR ---
EXAMINATION TYPE: XR chest 2V DATE OF EXAM: 12/15/2019 COMPARISON: 07/10/2017 HISTORY: Weakness and shortness of breath TECHNIQUE: Frontal and lateral views of the chest are obtained. FINDINGS: Similar-appearing, enlargement of the ascending thoracic aorta in comparison to the prior lateral 2017. Extensive atheromatous changes of the thoracic aorta are seen. Cardia mediastinal silho uette is enlarged but stable. Diffuse osseous demineralization is seen with left-sided humeral arthro plasty. No focal consolidation, pleural effusion or pneumothorax. IMPRESSION: Chronic changes with no acute cardiopulmonary process.
[2019-12-15] MEDS ORDERED: NITROGLYCERIN SL TABS 0.4 MG TAB SUBLINGUAL PRN (09:45)
[2019-12-15] MEDS ORDERED: MORPHINE SULFATE 4 MG/ML SYRINGE IV PRN (09:45)
[2019-12-15] MEDS ORDERED: ASPIRIN 81 MG PO STA (09:45)
[2019-12-15] MEDS ORDERED: cefTRIAXone IN SWFI 1,000 MG/10 ML SYRINGE IVP SCH (10:00)
[2019-12-15] MEDS: HEPARIN SOD,PORK IN 0.45% NACL 25,000 UNIT in 0.45% NACL 1 250ML.BAG IV SCH (10:13)
[2019-12-15] MEDS ORDERED: SODIUM CHLORIDE 0.9% 1,000 ML IV SCH (13:15)
[2019-12-15] MEDS: IPRATROPIUM-ALBUTEROL 3 ML NEB INHALATION SCH ×3 (14:20→20:31)
[2019-12-15] MEDS: ATORVASTATIN 20 MG TAB PO SCH (21:19)
--- NOTE | 2019-12-15 23:07 | P.HPIM ---
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 Patient was washing hands after getting up from the toilet and suddenly felt dizzy and fell on the floor. She did lose consciousness briefly. Patient denied any complaints of chest pain. Was having some shortness of breath. Denied any fever or chills. Patient has been having chest congestion and cough without sputum production for the past few days. As per her daughter at bedside patient has not been feeling well for the past 2 weeks. Patient was also having right lower abdominal, flank pain along with nausea for about 2-3 weeks. Denied any dysuria or hematuria. Patient did have a urinary tract infection last time about 2 years ago. No complaints of headache. No orthopnea no PND. No leg swelling. No vomiting or diarrhea. Denied any sick contacts at home. CT head and cervical spine showed no acute fracture or dislocation. No acute intracranial hemorrhage, mass effect, or midline shift is seen. Chronic small vessel ischemia. Evidence of prior CVA. Age related atrophy. Chest x-ray showed no acute cardio pulmonary process EKG showed sinus rhythm with sinus arrhythmia. Troponin 0.056 and 0.049 Sodium 133, WBC 7.7, hemoglobin 13.2 Urinalysis showed nitrite positive, large leukocyte esterase and elevated RBCs and WBCs. Review of Systems Constitutional: Patient denies any fever or chills . Generalized weakness. No weight loss. Abdomen: Patient denied nausea vomiting and diarrhea and abdominal pain. Cardiovascular: Patient denies any chest pain or short of breath no palpitations. Respiratory: Patient does have cough without sputum production. Mild shortness of breath Neurologic: Patient denied any numbness or tingling headache. Musculoskeletal: Patient denies any complaints of joint swelling or deformity. Skin: Negative Psychiatric: Negative Endocrine: No heat or cold intolerance. No recent weight gain. Genitourinary: No dysuria or hematuria. All other 14 point ROS negative except the above Past Medical History Past Medical History: Coronary Artery Disease (CAD), CVA/TIA, GI Bleed, Hearing Disorder / Deafness, Hyperlipidemia, Hypertension, Musculoskeletal Disorder, O steoarthritis (OA) Additional Past Medical History / Comment(s): PVD. PEPTIC ULCER DISEASE. ULCERATIVE COLITIS. 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 History of Any Multi-Drug Resistant Organisms: None Reported Past Surgical History: Appendectomy, Coronary Bypass/CABG, Hysterectomy, Joint Replacement, Tonsillectomy Additional Past Surgical History / Comment(s): Carotid Artery on Left. BILATERAL STENTS FOR PVD. QUAD CABG 1995. COLONOSCOPY, EGD. LT SHOULDER REPLACEMENT. polyp removed from rectum Past Anesthesia/Blood Transfusion Reactions: No Reported Reaction Past Psychological History: No Psychological Hx Reported Smoking Status: Former smoker Past Alcohol Use History: None Reported Past Drug Use History: None Reported - Past Family History Sister(s) Family Medical History: Cancer Father Family Medical History: No Reported History Additional Family Medical History / Comment(s): . Medications and Allergies Home Medications Medication Instructions Recorded Confirmed Type Atorvastatin [Lipitor] 20 mg PO HS 11/25/14 12/15/19 History Apixaban [Eliquis] 2.5 mg PO BID 02/27/17 12/15/19 History Losartan [Cozaar] 50 mg PO BID 12/15/19 12/15/19 History Allergies Allergy/AdvReac Type Severity Reaction Status Date / Time ciprofloxacin HCl Allergy Mild Itching Verified 07/10/17 22:43 [From Cipro] adhesive AdvReac Mild Itching Verified 07/10/17 22:43 Physical Exam Vitals: Vital Signs Temp Pulse Resp BP Pulse Ox 12/15/19 12:04 97 18 92 L 12/15/19 12:00 100 9 L 92 L 12/15/19 11:30 89 15 108/58 91 L 12/15/19 11:00 94 16 108/58 12/15/19 10:30 102 H 17 107/72 91 L 12/15/19 10:00 17 124/77 91 L 12/15/19 09:30 18 119/66 94 L 12/15/19 09:05 92 12/15/19 09:00 92 17 133/73 100 12/15/19 08:49 92 12/15/19 08:30 89 11 L 144/67 96 12/15/19 08:00 84 25 H 139/75 94 L 12/15/19 07:30 82 17 139/73 96 12/15/19 07:00 86 136/68 87 L 12/15/19 06:45 101 H 19 136/68 90 L 12/15/19 05:31 98.9 F 71 16 115/68 95 Intake and Output 12/14/19 12/15/19 12/15/19 22:59 06:59 14:59 Other: Weight 68.039 kg PHYSICAL EXAMINATION: Patient is lying in the bed comfortably, no acute distress, awake alert and oriented.. HEENT: Normocephalic. Neck is supple. Pupils reactive. Nostrils clear. Oral cavity is moist. Ears reveal no drainage. Neck reveals no JVD, carotid bruits, or thyromegaly. CHEST EXAMINATION: Trachea is central. Symmetrical expansion. Bibasilar diminished air entry. Prolonged expiration. Lung carrero clear to auscultation and percussion. CARDIAC: Normal S1, S2 with no gallops. No murmurs ABDOMEN: Soft. Bowel sounds normal. No organomegaly. No abdominal bruits. Extremities: reveal no edema. No clubbing or cyanosis Neurologically awake, alert, oriented x3 with well-coordinated movements. No focal deficits noted Skin: No rash or skin lesions. Psychiatric: Coperative. Nonsuicidal Musculoskeletal: No joint swelling or deformity. Normal range of motion. Results CBC & Chem 7: 12/15/19 06:00 12/15/19 06:00 Labs: Abnormal Lab Results - Last 24 Hours (Table) 12/15/19 12/15/19 12/15/19 Range/Units 06:00 06:00 06:00 Lymphocytes # 0.6 L (1.0-4.8) k/uL Sodium 133 L (137-145) mmol/L Carbon Dioxide 19 L (22-30) mmol/L BUN 18 H (7-17) mg/dL Glucose 112 H (74-99) mg/dL Calcium 8.0 L (8.4-10.2) mg/dL AST 39 H (14-36) U/L Troponin I 0.056 H* (0.000-0.034) ng/mL Total Protein 5.6 L (6.3-8.2) g/dL Albumin 2.9 L (3.5-5.0) g/dL Urine Appearance (Clear) Urine Protein (Negative) Urine Blood (Negative) Urine Nitrite (Negative) Ur Leukocyte Esterase (Negative) Urine RBC (0-5) /hpf Urine WBC (0-5) /hpf Urine Bacteria (None) /hpf Urine Mucus (None) /hpf 12/15/19 Range/Units 07:35 Lymphocytes # (1.0-4.8) k/uL Sodium (137-145) mmol/L Carbon Dioxide (22-30) mmol/L BUN (7-17) mg/dL Glucose (74-99) mg/dL Calcium (8.4-10.2) mg/dL AST (14-36) U/L Troponin I (0.000-0.034) ng/mL Total Protein (6.3-8.2) g/dL Albumin (3.5-5.0) g/dL Urine Appearance Cloudy H (Clear) Urine Protein 1+ H (Negative) Urine Blood Moderate H (Negative) Urine Nitrite Positive H (Negative) Ur Leukocyte Esterase Large H (Negative) Urine RBC 20 H (0-5) /hpf Urine WBC 46 H (0-5) /hpf Urine Bacteria Many H (None) /hpf Urine Mucus Rare H (None) /hpf Microbiology - Last 24 Hours (Table) 12/15/19 07:35 Urine Culture - Preliminary Urine,Catheterized Thrombosis Risk Factor Assmnt - DVT/VTE Prophylaxis DVT/VTE Prophylaxis: Pharmacologic Prophylaxis ordered Assessment and Plan Assessment: Dizziness and syncope. Possible orthostatic hypotension. Acute urinary tract infection Elevated troponin level. Possible type II [place]. Hypovolemic hyponatremia Coronary artery disease with history of CABG-4 vessel in 1995 History of TIAs/CVA with no residual weakness Hearing disorder/deafness Hypertension Hyperlipidemia Osteoarthritis Peripheral vascular disease Peptic ulcer disease History of ulcerative colitis Previous history of smoking DVT prophylaxis. Patient on heparin drip Patient will be continued on telemetry monitoring. Continue with gentle hydration and antibiotics the form of ceftriaxone. Follow-up urine culture report. Patient was started on heparin drip due to elevated troponin level and cardiology was consulted. Continue with aspirin and statins. We will hold blood pressure medications, losartan which she takes at home due to hypotension. Further recommendations based on the clinical course. Prognosis guarded with multiple medical problems and comorbid conditions. Time with Patient: Greater than 30
[2019-12-16] MEDS: IPRATROPIUM-ALBUTEROL 3 ML NEB INHALATION SCH ×6 (01:36→21:17)
[2019-12-16] MEDS ORDERED: IPRATROPIUM-ALBUTEROL 3 ML NEB INHALATION PRN (01:39)
[2019-12-16 06:50] LABS: Basophils % (A) 0 %; Eosinophils % (A) 0 %; HCT 38.8 % (34.0-46.0); HGB 12.5 gm/dL (11.4-16.0); Lymphocytes # (A) 0.7 k/uL (1.0-4.8); Lymphocytes % (A) 22 %; MCH 28.8 pg (25.0-35.0); MCHC 32.1 g/dL (31.0-37.0); MCV 89.6 fL (80.0-100.0); Mean Platelet Volume 9.1; Monocytes # (A) 0.2 k/uL (0-1.0); Monocytes % (A) 5 %; Neutrophils # (A) 2.2 k/uL (1.3-7.7); Neutrophils % (A) 69 %; Platelet Count 171 k/uL (150-450); RBC 4.33 m/uL (3.80-5.40); WBC 3.1 k/uL (3.8-10.6)
[2019-12-16 07:30] LABS: African American GFR (CKD) >90 (>60 ml/min/1.73 sqM); Anion Gap 8 mmol/L; Blood Urea Nitrogen 19 mg/dL (7-17); Calcium 7.7 mg/dL (8.4-10.2); Carbon Dioxide 21 mmol/L (22-30); Chloride 109 mmol/L (98-107); Cholesterol 113 mg/dL (<200); Glucose 142 mg/dL (74-99); HDL Cholesterol 49 mg/dL (40-60); LDL Cholesterol,Calculated 45 mg/dL (0-99); Non-African American GFR(CKD) 78 (>60 ml/min/1.73 sqM); Potassium 3.9 mmol/L (3.5-5.1); Sodium 138 mmol/L (137-145); Triglycerides 96 mg/dL (<150)
--- NOTE | 2019-12-16 08:21 | P.CRDCN ---
History of Present Illness Consult date: 12/16/19 Requesting physician: Aki Turpin Reason for Consult (text): Abnormal troponins Chief complaint: Syncope History of present illness: This is a pleasant 84-year-old female with known history of coronary artery disease and prior bypass surgery, history of prior CVA. hypertension, hyperlipidemia, peripheral vascular disease, follows with Dr. VC Franco the office. He presents to the hospital following a syncopal episode. According to the patient, she had got up to use the bathroom, she stood up at the sink to wash her hands and the next thing she recalled was waking up on the floor. She states that she had no warning prior to passing out, she does not recall if she was dizzy or lightheaded, no symptoms prior at all. Upon wakening she noticed that she did lose control of bowel function. According to the patient, she states she's been dealing with a cold over the past couple of weeks. She does state that she has been experiencing some chest pressure and heaviness but thought it was secondary to congestion. Patient also states that she has been having some episodes of dizziness. Patient's home medications include Cozaar 50 mg one tablet by mouth twice a day, Lipitor 20 mg daily, Eliquis 2-1/2 mg one tablet by mouth twice a day. Patient is unsure as to whether or not she's been told in the past to have an irregular heartbeat, while the patient is taking E liquis. CAT scan of the head and cervical spine did not reveal any acute fracture or dislocation. No acute intracranial hemorrhage, mass effect, or midline shift. Chest x-ray shows chronic changes without any acute cardiopulmonary process. EKG shows a normal sinus rhythm with occasional PVC. Blood pressure 140/70, heart rate in the 80s. White blood cell count 7.7 on admission, 3.1 this morning, hemoglobin 12.5, platelet count 171. Sodium 138, potassium 3.9, BUN 19, creatinine 0.7. BNP 5210. Troponins 0.056, 049, 0.045. Positive UTI. C. diff negative. At the time of my examination this morning, patient complains of feeling weak, she denies any dizziness or lightheadedness, complains of mild pressure in the chest. Past Medical History Past Medical History: Coronary Artery Disease (CAD), CVA/TIA, GI Bleed, Hearing Disorder / Deafness, Hyperlipidemia, Hypertension, Musculoskeletal Disorder, Osteoarthritis (OA) Additional Past Medical History / Comment(s): PVD. PEPTIC ULCER DISEASE. ULCERATIVE COLITIS. 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 History of Any Multi-Drug Resistant Organisms: None Reported Past Surgical History: Appendectomy, Coronary Bypass/CABG, Hysterectomy, Joint Replacement, Tonsillectomy Additional Past Surgical History / Comment(s): Carotid Artery on Left. BILATERAL STENTS FOR PVD. QUAD CABG 1995. COLONOSCOPY, EGD. LT SHOULDER REPLACEMENT. polyp removed from rectum Past Anesthesia/Blood Transfusion Reactions: No Reported Reaction Past Psychological History: No Psychological Hx Reported Smoking Status: Former smoker Past Alcohol Use History: None Reported Past Drug Use History: None Reported - Past Family History Sister(s) Family Medical History: Cancer Father Family Medical History: No Reported History Additional Family Medical History / Comment(s): . Medications and Allergies Home Medications Medication Instructions Recorded Confirmed Type Atorvastatin [Lipitor] 20 mg PO HS 11/25/14 12/15/19 History Apixaban [Eliquis] 2.5 mg PO BID 02/27/17 12/15/19 History Losartan [Cozaar] 50 mg PO BID 12/15/19 12/15/19 History Allergies Allergy/AdvReac Type Severity Reaction Status Date / Time ciprofloxacin HCl Allergy Mild Itching Verified 07/10/17 22:43 [From Cipro] adhesive AdvReac Mild Itching Verified 07/10/17 22:43 Physical Exam Vitals: Vital Signs Temp Pulse Pulse Resp BP BP Pulse Ox 12/16/19 04:00 97.6 F 83 16 116/65 95 12/16/19 02:01 74 12/16/19 01:38 72 12/16/19 00:00 98.5 F 88 18 131/68 94 L 12/15/19 20:42 72 12/15/19 20:32 64 95 12/15/19 20:00 98.3 F 79 16 130/68 93 L 12/15/19 16:00 99.0 F 85 114/66 92 L 12/15/19 13:50 85 21 116/62 99 12/15/19 13:30 85 21 116/62 12/15/19 13:00 88 22 112/86 93 L 12/15/19 12:30 90 30 H 96/56 94 L 12/15/19 12:04 97 18 92 L 12/15/19 12:00 100 9 L 92 L 12/15/19 11:30 89 15 108/58 91 L 12/15/19 11:00 94 16 108/58 12/15/19 10:30 102 H 17 107/72 91 L 12/15/19 10:00 17 124/77 91 L 12/15/19 09:30 18 119/66 94 L 12/15/19 09:05 92 12/15/19 09:00 92 17 133/73 100 12/15/19 08:49 92 12/15/19 08:30 89 11 L 144/67 96 Intake and Output 12/15/19 12/16/19 12/16/19 22:59 06:59 14:59 Intake Total 49.126 Balance 49.126 Intake: Intake, IV Titration 49.126 Amount Heparin Sod,Pork in 0.45% 49.126 NaCl 25,000 unit In 0.45 % NaCl 1 250ml.bag @ 12 UNITS/KG/HR 8.165 mls/hr IV .Q24H [facility] Rx#: [id number] Other: # Voids 1 1 # Bowel Movements 1 Weight 70.8 kg PHYSICAL EXAMINATION: GENERAL: 84-year-old female in no acute distress at the time of my examination HEENT: Head is atraumatic, normocephalic. Pupils equal, round. Sclera anicteric. Conjunctiva are clear. Mucous membranes of the mouth are moist. Neck is supple. There is no elevated jugular venous pressure. No carotid bruit is heard. HEART EXAMINATION: Heart S1, S2 normal. No murmur or gallop heard. CHEST EXAMINATION: Lungs reveal some scattered rhonchi that clear with cough. ABDOMEN: Soft, nontender. Bowel sounds are heard. No organomegaly noted. EXTREMITIES: 2+ peripheral pulses with no evidence of peripheral edema and no calf tenderness noted. NEUROLOGIC patient is awake, alert and oriented 3 . Results 12/16/19 05:56 12/16/19 05:56 Cardiac Enzymes 12/15/19 12/15/19 Range/Units 12:34 18:03 Troponin I 0.049 H* 0.045 H* (0.000-0.034) ng/mL Coagulation 12/15/19 12/15/19 12/16/19 Range/Units 14:55 21:55 05:56 APTT 137.3 H* 61.7 H 98.7 H (22.0-30.0) sec Lipids 12/16/19 Range/Units 05:56 Triglycerides 96 (<150) mg/dL Cholesterol 113 (<200) mg/dL HDL Cholesterol 49 (40-60) mg/dL CBC 12/16/19 Range/Units 05:56 WBC 3.1 L (3.8-10.6) k/uL RBC 4.33 (3.80-5.40) m/uL Hgb 12.5 (11.4-16.0) gm/dL Hct 38.8 (34.0-46.0) % Plt Count 171 (150-450) k/uL Comprehensive Metabolic Panel 12/16/19 Range/Units 05:56 Sodium 138 (137-145) mmol/L Potassium 3.9 (3.5-5.1) mmol/L Chloride 109 H (98-107) mmol/L Carbon Dioxide 21 L (22-30) mmol/L BUN 19 H (7-17) mg/dL Creatinine 0.71 (0.52-1.04) mg/dL Glucose 142 H (74-99) mg/dL Calcium 7.7 L (8.4-10.2) mg/dL Current Medications Generic Name Dose Route Start Last Admin Trade Name Freq PRN Reason Stop Dose Admin Albuterol/Ipratropium 3 ml 12/16/19 01:39 Duoneb 0.5 Mg-3 Mg/3 Ml Soln INHALATION RT-QID PRN Shortness Of Breath Or Wheezing Albuterol/Ipratropium 3 ml 12/16/19 08:00 12/16/19 07:47 Duoneb 0.5 Mg-3 Mg/3 Ml Soln INHALATION Not Given RT-QID [facility] Aspirin 81 mg 12/16/19 09:00 Aspirin PO DAILY [facility] Atorvastatin Calcium 20 mg 12/15/19 21:00 12/15/19 21:19 Lipitor PO 20 mg HS MAIKEL Administration Heparin Sodium (Porcine) 0 unit 12/15/19 08:38 Heparin IV PER PROTOCOL PRN Low PTT Protocol Heparin Sodium/Sodium Chloride 250 mls @ 8.165 mls/hr 12/15/19 08:45 12/15/19 19:50 25,000 unit/ Sodium Chloride IV 10 units/kg/hr .Q24H MA[facility] 6.804 mls/hr Titration Protocol 12 UNITS/KG/HR Ceftriaxone Sodium 1 gm/ 50 mls @ 100 mls/hr 12/15/19 21:00 12/15/19 21:19 Sodium Chloride IVPB 100 mls/hr Q12HR MAIKEL Administration Morphine Sulfate 4 mg 12/15/19 09:45 Morphine Sulfate (Inj) IV Q5M PRN Chest Pain Nitroglycerin 0.4 mg 12/15/19 09:45 Nitrostat SUBLINGUAL Q5M PRN Chest Pain Intake and Output 12/15/19 12/16/19 12/16/19 22:59 06:59 14:59 Intake Total 49.126 Balance 49.126 Intake: Intake, IV Titration 49.126 Amount Heparin Sod,Pork in 0.45% 49.126 NaCl 25,000 unit In 0.45 % NaCl 1 250ml.bag @ 12 UNITS/KG/HR 8.165 mls/hr IV .Q24H [facility] Rx#: [id number] Other: # Voids 1 1 # Bowel Movements 1 Weight 70.8 kg 12/16/19 05:56 12/16/19 05:56 Assessment and Plan Plan: Assessment and plan #1 syncope, rule out cardiac causes #2 abnormality in troponin, no significant rise and fall pattern. Patient does however complain of intermittent chest pressure and heaviness. EKG shows normal sinus rhythm with no acute changes. 3 known history of coronary artery disease with prior bypass surgery #4 hypertension #5 hyperlipidemia #6 prior history of smoking #7 peripheral vascular disease #8 prior CVA #9 elevated BNP level with no clear-cut evidence of congestive heart failure Plan We will obtain an echocardiogram with Doppler study. Check orthostatic heart rate and blood pressure every shift, monitor for any tachycardia or bradycardia arrhythmias. Obtain a d-dimer. Further recommendations to follow. DNP note has been reviewed, I agree with a documented findings and plan of care. Patient was seen and examined.
[2019-12-16] MEDS ORDERED: ASPIRIN 325 MG TAB PO SCH (09:00)
[2019-12-16] MEDS: ASPIRIN 81 MG PO SCH (10:25)
[2019-12-16 11:26] VITALS: BMI 27.6
--- NOTE | 2019-12-16 11:34 | ECHOF ---
Referral Reason:elevated trop MEASUREMENTS -------- HEIGHT: 160.0 cm WEIGHT: 70.8 kg BP: IVSd: 1.2 cm (0.6 - 1.1) LVIDd: 4.5 cm (3.9 - 5.3) LVPWd: 1.2 cm (0.6 - 1.1) IVSs: 1.5 cm LVIDs: 3.4 cm LVPWs: 1.6 cm LAESV Index (A-L): 51.27 ml/m Ao Diam: 2.6 cm (2.0 - 3.7) AV Cusp: 1.8 cm (1.5 - 2.6) LA Diam: 4.4 cm (2.7 - 3.8) MV EXCURSION: 14.577 mm (> 18.000) MV EF SLOPE: 34 mm/s (70 - 150) EPSS: 1.0 cm MV E Ramesh: 1.42 m/s MV DecT: 324 ms MV A Ramesh: 1.02 m/s MV E/A Ratio: 1.39 AV maxP.30 mmHg AV meanP.34 mmHg AR PHT: 125 ms RAP: 5.00 mmHg RVSP: 34.27 mmHg FINDINGS -------- Sinus rhythm. This was a technically good study. The left ventricular size is normal. There is mild concentric left ventricular hypertrophy. Overa ll left ventricular systolic function is mildly impaired with, an EF between 45 - 50 %. Basal infer oseptal LV wall motion is hypokinetic. Basal inferolateral hypokinesis. The right ventricle is normal in size. LA is severely dilated >40 ml/m2 The right atrial size is normal. Aortic valve is trileaflet and is mildly thickened. There is mild aortic valve sclerosis. Trace a mount of aortic regurgitation. The mitral valve is normal. The mitral valve leaflets are mildly thickened. Moderate mitral annul ar calcification present. Moderate mitral regurgitation is present. The peak and mean MV gradien ts are 16.24mmHg 5.03mmHg as measured by doppler. [id number] mitral stenosis. The tricuspid valve appears structurally normal. Mild tricuspid regurgitation present. Right vent ricular systolic pressure is normal at < 35 mmHg. There is no pulmonic regurgitation present. The aortic root size is normal. Normal inferior vena cava with normal inspiratory collapse consistent with estimated right atrial pre ssure of 5 mmHg. There is no pericardial effusion. CONCLUSIONS -------- 1. Sinus rhythm. 2. This was a technically good study. 3. The left ventricular size is normal. 4. There is mild concentric left ventricular hypertrophy. 5. Basal inferoseptal LV wall motion is hypokinetic. 6. Basal inferolateral hypokinesis. 7. The right ventricle is normal in size. 8. LA is severely dilated >40 ml/m2 9. The right atrial size is normal. 10. Aortic valve is trileaflet and is mildly thickened. 11. There is mild aortic valve sclerosis. 12. Trace amount of aortic regurgitation. 13. The mitral valve is normal. 14. The mitral valve leaflets are mildly thickened. 15. Moderate mitral annular calcification present. 16. Moderate mitral regurgitation is present. 17. The peak and mean MV gradients are 16.24mmHg 5.03mmHg as measured by doppler. 18. [id number] mitral stenosis. 19. The tricuspid valve appears structurally normal. 20. Mild tricuspid regurgitation present. 21. Right ventricular systolic pressure is normal at < 35 mmHg. 22. There is no pulmonic regurgitation present. 23. The aortic root size is normal. 24. Normal inferior vena cava with normal inspiratory collapse consistent with estimated right atrial pressure of 5 mmHg. 25. There is no pericardial effusion. HOUSE PAINTER: Priyanka Astorga RDCS
[2019-12-16] MEDS: ATORVASTATIN 20 MG TAB PO SCH (21:12)
[2019-12-16] MEDS: HEPARIN SOD,PORK IN 0.45% NACL 25,000 UNIT in 0.45% NACL 1 250ML.BAG IV SCH (21:20)
[2019-12-16] MEDS: LOSARTAN 50 MG TAB PO SCH (22:51)
[2019-12-16] MEDS: guaiFENesin SYRUP 100MG/5ML 200 MG/10 ML CUP PO PRN (22:52)
--- NOTE | 2019-12-16 23:56 | P.PN ---
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 Patient was washing hands after getting up from the toilet and suddenly felt dizzy and fell on the floor. She did lose consciousness briefly. Patient denied any complaints of chest pain. Was having some shortness of breath. Denied any fever or chills. Patient has been having chest congestion and cough without sputum production for the past few days. As per her daughter at bedside patient has not been feeling well for the past 2 weeks. Patient was also having right lower abdominal, flank pain along with nausea for about 2-3 weeks. Denied any dysuria or hematuria. Patient did have a urinary tract infection last time about 2 years ago. No complaints of headache. No orthopnea no PND. No leg swelling. No vomiting or diarrhea. Denied any sick contacts at home. CT head and cervical spine showed no acute fracture or dislocation. No acute intracranial hemorrhage, mass effect, or midline shift is seen. Chronic small vessel ischemia. Evidence of prior CVA. Age related atrophy. Chest x-ray showed no acute cardio pulmonary process EKG showed sinus rhythm with sinus arrhythmia. Troponin 0.056 and 0.049 Sodium 133, WBC 7.7, hemoglobin 13.2 Urinalysis showed nitrite positive, large leukocyte esterase and elevated RBCs and WBCs. 12/16/2019 Patient is currently sitting in the chair comfortably. Tolerating oral diet. No complaints of chest pain or shortness of breath. BNP is elevated to 5200. Patient does have occasional chest tightness yesterday. Currently denied any symptoms. Otherwise patient is being continued on antibiotics for urinary tract infection and follow-up urine culture report. 2-D echocardiogram was ordered and cardiology is following. Patient has been afebrile. Current medications reviewed. Objective - Vital Signs Vital signs: Vital Signs Temp 97.8 F 12/16/19 11:41 Pulse 76 12/16/19 11:41 Resp 18 12/16/19 11:41 BP 140/70 12/16/19 11:41 Pulse Ox 97 12/16/19 11:41 Intake & Output 12/15/19 12/16/19 12/16/19 18:59 06:59 18:59 Intake Total 49.126 0 Balance 49.126 0 Weight 68.039 kg 70.8 kg 70.8 kg Intake: Intake, IV Titration 49.126 0 Amount Heparin Sod,Pork in 0.45% 49.126 0 NaCl 25,000 unit In 0.45 % NaCl 1 250ml.bag @ 12 UNITS/KG/HR 8.165 mls/hr IV .Q24H [facility] Rx#: [id number] Other: # Voids 1 1 1 # Bowel Movements 1 1 - Exam PHYSICAL EXAMINATION: Patient is lying in the bed comfortably, no acute distress, awake alert and oriented.. HEENT: Normocephalic. Neck is supple. Pupils reactive. Nostrils clear. Oral cavity is moist. Ears reveal no drainage. Neck reveals no JVD, carotid bruits, or thyromegaly. CHEST EXAMINATION: Trachea is central. Symmetrical expansion. Lung carrero clear to auscultation and percussion. CARDIAC: Normal S1, S2 with no gallops. No murmurs ABDOMEN: Soft. Bowel sounds normal. No organomegaly. No abdominal bruits. Extremities: reveal no edema. No clubbing or cyanosis Neurologically awake, alert, oriented x3 with well-coordinated movements. No focal deficits noted Skin: No rash or skin lesions. Psychiatric: Coperative. Nonsuicidal Musculoskeletal: No joint swelling or deformity. Normal range of motion. - Labs CBC & Chem 7: 12/16/19 05:56 12/16/19 05:56 Labs: Abnormal Lab Results - Last 24 Hours (Table) 12/15/19 12/15/19 12/15/19 Range/Units 12:34 14:55 18:03 WBC (3.8-10.6) k/uL Lymphocytes # (1.0-4.8) k/uL APTT 137.3 H* (22.0-30.0) sec Chloride (98-107) mmol/L Carbon Dioxide (22-30) mmol/L BUN (7-17) mg/dL Glucose (74-99) mg/dL Calcium (8.4-10.2) mg/dL Troponin I 0.049 H* 0.045 H* (0.000-0.034) ng/mL 12/15/19 12/16/19 12/16/19 Range/Units 21:55 05:56 05:56 WBC 3.1 L (3.8-10.6) k/uL Lymphocytes # 0.7 L (1.0-4.8) k/uL APTT 61.7 H (22.0-30.0) sec Chloride 109 H (98-107) mmol/L Carbon Dioxide 21 L (22-30) mmol/L BUN 19 H (7-17) mg/dL Glucose 142 H (74-99) mg/dL Calcium 7.7 L (8.4-10.2) mg/dL Troponin I (0.000-0.034) ng/mL 12/16/19 Range/Units 05:56 WBC (3.8-10.6) k/uL Lymphocytes # (1.0-4.8) k/uL APTT 98.7 H (22.0-30.0) sec Chloride (98-107) mmol/L Carbon Dioxide (22-30) mmol/L BUN (7-17) mg/dL Glucose (74-99) mg/dL Calcium (8.4-10.2) mg/dL Troponin I (0.000-0.034) ng/mL Microbiology - Last 24 Hours (Table) 12/15/19 07:35 Urine Culture - Preliminary Urine,Catheterized Assessment and Plan Assessment: Dizziness and syncope. Possible orthostatic hypotension. Acute urinary tract infection Elevated troponin level. Possible type II IN. Elevated BNP without evidence of CHF. Hypovolemic hyponatremia. Improved Coronary artery disease with history of CABG-4 vessel in 1995 History of TIAs/CVA with no residual weakness Hearing disorder/deafness Hypertension Hyperlipidemia Osteoarthritis Peripheral vascular disease Peptic ulcer disease History of ulcerative colitis Previous history of smoking DVT prophylaxis. Patient on heparin drip Patient will be continued on telemetry monitoring. Continue with gentle hydration and antibiotics the form of ceftriaxone. Follow-up urine culture report. Patient was started on heparin drip due to elevated troponin level and cardiology has seen the patient.. Continue with aspirin and statins. We will hold blood pressure medications, losartan which she takes at home due to hypotension. Further recommendations based on the clinical course. Prognosis guarded with multiple medical problems and comorbid conditions. Time with Patient: Greater than 30
[2019-12-17 02:20] LABS: Basophils % (A) 1 %; Eosinophils % (A) 1 %; HCT 38.8 % (34.0-46.0); HGB 12.3 gm/dL (11.4-16.0); Lymphocytes # (A) 1.4 k/uL (1.0-4.8); Lymphocytes % (A) 22 %; MCH 28.5 pg (25.0-35.0); MCHC 31.6 g/dL (31.0-37.0); MCV 90.1 fL (80.0-100.0); Monocytes # (A) 0.3 k/uL (0-1.0); Monocytes % (A) 5 %; Neutrophils # (A) 4.4 k/uL (1.3-7.7); Neutrophils % (A) 70 %; Platelet Count 163 k/uL (150-450); RBC 4.31 m/uL (3.80-5.40); RDW 13.3 % (11.5-15.5); WBC 6.3 k/uL (3.8-10.6)
[2019-12-17 02:28] LABS: Calcium 7.7 mg/dL (8.4-10.2); Magnesium 1.9 mg/dL (1.6-2.3); Potassium 4.1 mmol/L (3.5-5.1)
[2019-12-17] MEDS: guaiFENesin SYRUP 100MG/5ML 200 MG/10 ML CUP PO PRN (05:49)
[2019-12-17] MEDS: IPRATROPIUM-ALBUTEROL 3 ML NEB INHALATION SCH ×2 (08:51→11:55)
[2019-12-17] MEDS: ASPIRIN 81 MG PO SCH (08:54)
[2019-12-17] MEDS: LOSARTAN 50 MG TAB PO SCH (08:54)
[2019-12-17 12:12] VITALS: BP 125/77; PULSE 87; RESP 18; TEMP 98.3
--- NOTE | 2019-12-17 13:21 | P.PN ---
Subjective Progress Note Date: 12/17/19 This is a pleasant 84-year-old female with known history of coronary artery disease and prior bypass surgery, history of prior CVA. hypertension, hyperlipidemia, peripheral vascular disease, follows with Dr. VC Franco the office. He presents to the hospital following a syncopal episode. According to the patient, she had got up to use the bathroom, she stood up at the sink to wash her hands and the next thing she recalled was waking up on the floor. She states that she had no warning prior to passing out, she does not recall if she was dizzy or lightheaded, no symptoms prior at all. Upon wakening she noticed that she did lose control of bowel function. According to the patient, she states she's been dealing with a cold over the past couple of weeks. She does state that she has been experiencing some chest pressure and heaviness but thought it was secondary to congestion. Patient also states that she has been having some episodes of dizziness. Patient's home medications include Cozaar 50 mg one tablet by mouth twice a day, Lipitor 20 mg daily, Eliquis 2-1/2 mg one tablet by mouth twice a day. Patient is unsure as to whether or not she's been told in the past to have an irregular heartbeat, while the patient is taking Eliquis. CAT scan of the head and cervical spine did not reveal any acute fracture or dislocation. No acute intracranial hemorrhage, mass effect, or midline shift. Chest x-ray shows chronic changes without any acute cardiopulmonary process. EKG shows a normal sinus rhythm with occasional PVC. Blood pressure 140/70, heart rate in the 80s. White blood cell count 7.7 on admission, 3.1 this morning, hemoglobin 12.5, platelet count 171. Sodium 138, potassium 3.9, BUN 19, creatinine 0.7. BNP 5210. Troponins 0.056, 049, 0.045. Positive UTI. C. diff negative. At the time of my examination this morning, patient complains of feeling weak, she denies any dizziness or lightheadedness, complains of mild pressure in the chest. 12/17/2019 Patient was seen and examined this morning, she had no significant orthostatics documented. Echocardiogram with Doppler study revealed an ejection fraction of 45-50%. No tachycardia or bradycardia arrhythmias have been noted on the monitor. Blood cell count 6.3, hemoglobin 12.3, platelet count 163. Sodium 138, potassium 4.1, BUN 21, creatinine 0.7, magnesium 1.9. Objective - Vital Signs Vital signs: Vital Signs Temp 98.3 F 12/17/19 12:07 Pulse 87 12/17/19 12:07 Resp 18 12/17/19 12:07 BP 125/77 12/17/19 12:07 Pulse Ox 94 L 12/17/19 12:07 Intake & Output 12/16/19 12/17/19 12/17/19 18:59 06:59 18:59 Intake Total 576.152 327.383 305.015 Balance 576.152 327.383 305.015 Weight 70.8 kg 71.6 kg Intake: IV 160 0.9 160 Intake, IV Titration 156.152 167.383 65.015 Amount Heparin Sod,Pork in 0.45% 156.152 7.383 65.015 NaCl 25,000 unit In 0.45 % NaCl 1 250ml.bag @ 12 UNITS/KG/HR 8.165 mls/hr IV .Q24H [facility] Rx#: [id number] cefTRIAXone 1 gm In 160 Sodium Chloride 0.9% 50 ml @ 100 mls/hr IVPB Q12HR [facility] Rx#:[id number] Oral 420 240 Other: Voiding Method Toilet # Voids 7 1 3 # Bowel Movements 5 2 - Exam PHYSICAL EXAMINATION: GENERAL: 84-year-old female in no acute distress at the time of my examination HEENT: Head is atraumatic, normocephalic. Pupils equal, round. Sclera anicteric. Conjunctiva are clear. Mucous membranes of the mouth are moist. Neck is supple. There is no elevated jugular venous pressure. No carotid bruit is heard. HEART EXAMINATION: Heart S1, S2 normal. No murmur or gallop heard. CHEST EXAMINATION: Lungs reveal some scattered rhonchi that clear with cough. ABDOMEN: Soft, nontender. Bowel sounds are heard. No organomegaly noted. EXTREMITIES: 2+ peripheral pulses with no evidence of peripheral edema and no calf tenderness noted. NEUROLOGIC patient is awake, alert and oriented 3 - Labs CBC & Chem 7: 12/17/19 02:06 12/17/19 02:06 Labs: Abnormal Lab Results - Last 24 Hours (Table) 12/16/19 12/17/1912/17/20 Range/Units 17:13 02:06 02:06 APTT 102.8 H* 52.6 H (22.0-30.0) sec Chloride 108 H (98-107) mmol/L BUN 21 H (7-17) mg/dL Glucose 111 H (74-99) mg/dL Calcium 7.7 L (8.4-10.2) mg/dL 12/17/19 Range/Units 08:33 APTT 39.9 H (22.0-30.0) sec Chloride (98-107) mmol/L BUN (7-17) mg/dL Glucose (74-99) mg/dL Calcium (8.4-10.2) mg/dL Microbiology - Last 24 Hours (Table) 12/15/19 07:35 Urine Culture - Final Urine,Catheterized Escherichia coli 12/16/19 05:56 Blood Culture - Preliminary Blood No Growth after 24 hours Assessment and Plan Plan: Assessment and plan #1 syncope, rule out cardiac causes #2 abnormality in troponin, no significant rise and fall pattern. Patient does however complain of intermittent chest pressure and heaviness. EKG shows normal sinus rhythm with no acute changes. 3 known history of coronary artery disease with prior bypass surgery #4 hypertension #5 hyperlipidemia #6 prior history of smoking #7 peripheral vascular disease #8 prior CVA #9 elevated BNP level with no clear-cut evidence of congestive heart failure Plan From cardiology's perspective, patient may be able to be discharged home today. We'll make a follow-up appointment in the office post discharge. DNP note has been reviewed, I agree with a documented findings and plan of care. Patient was seen and examined.
--- NOTE | 2019-12-21 07:23 | CDI ---
Documentation Clarification Form Date: 12/21/2019 07:11:06 AM From: Richa Colon Phone: If you have a question about this query, please contact Ade Pugh Membership Administrator at [phone] between 8am and 5pm. Admit Date: 12/17/2019 08:29:00 AM Patient Name: Kiki Cervantes Visit Number: [id number] Discharge Date: 12/17/2019 01:50:00 PM ATTENTION: The Clinical Documentation Specialists (CDI) and [facility] Coding Staff appreciate your assistance in clarifying documentation. Please respond to the clarification below the line at the bottom and electronically sign. The CDI & [facility] Coding staff will review the response and follow-up if needed. Please note: Queries are made part of the Legal Health Record. If you have any questions, please contact the author of this message via ITS. Dr. Aki Turpin Possible Type II Myocardial infarction is documented in the 12/16 PN's. Elevated troponin level possible Type II NE Patient History/Risk Factors: patient with chest pressure, weakness, hypotension, hx tobacco Clinical Indicators: EKG NSR with occational PVC Troponin: .056, .049, .045 Consult: Cardiology documents chest pressure thought to be due to chest congestion. For accurate documentation please indicate if patient had a Type II NE or was it ruled out Type Two NE: Type II NE ruled out: Unable to determine Other Condition, please specify Type Two NE MTDD
== END 2019-12-17 13:50 | disposition home or self-care (01) | DRG 281 ==
LOC: EC 05:29 → 3SCARD 09:52 → OBSVTOIN 12-17 08:29
PROVIDERS: ADMIT Internal Medicine; ATTEND Internal Medicine
DX: I95.1 Orthostatic hypotension (principal); I21.A1 Myocardial infarction type 2; K51.90 Ulcerative colitis, unspecified, without complications; E87.1 Hypo-osmolality and hyponatremia; N39.0 Urinary tract infection, site not specified; E78.5 Hyperlipidemia, unspecified; E86.1 Hypovolemia; H91.90 Unspecified hearing loss, unspecified ear; I10 Essential (primary) hypertension; I25.10 Atherosclerotic heart disease of native coronary artery without angina pectoris; I49.3 Ventricular premature depolarization; I73.9 Peripheral vascular disease, unspecified; Z87.11 Personal history of peptic ulcer disease; Z86.010 Personal history of colon polyps; M19.90 Unspecified osteoarthritis, unspecified site; W18.30XA Fall on same level, unspecified, initial encounter; Z79.01 Long term (current) use of anticoagulants; Z79.899 Other long term (current) drug therapy; Z86.73 Personal history of transient ischemic attack (TIA), and cerebral infarction without residual deficits; Z87.891 Personal history of nicotine dependence; Z90.710 Acquired absence of both cervix and uterus; Z95.1 Presence of aortocoronary bypass graft; Z96.612 Presence of left artificial shoulder joint; Z95.828 Presence of other vascular implants and grafts; Z87.440 Personal history of urinary (tract) infections
CPT/HCPCS: 36415; 70450; 71046; 72125; 80048; 80053; 80061; 81001; 83605; 83735; 83880; 84484; 85025; 85379; 85610; 85730; 87040; 87077; 87086; 87186; 87324; 93005; 93306; 94640; 94760; 96361; 96365; 96366; 96375; 96376; 99285

== ENCOUNTER 2019-12-28 16:13 | Inpatient (IN) | payer MEDICARE, BC ==
[2019-12-28] MEDS ORDERED: MORPHINE SULFATE 4 MG/ML SYRINGE IV STA (16:27)
[2019-12-28] MEDS ORDERED: LORazepam 2 MG/ML INJ IV STA (16:28)
[2019-12-28 16:41] LABS: Basophils % (A) 0 %; Eosinophils % (A) 0 %; HCT 40.4 % (34.0-46.0); HGB 12.9 gm/dL (11.4-16.0); Lymphocytes # (A) 1.1 k/uL (1.0-4.8); Lymphocytes % (A) 7 %; MCH 28.2 pg (25.0-35.0); MCHC 31.9 g/dL (31.0-37.0); MCV 88.5 fL (80.0-100.0); Mean Platelet Volume 8.6; Monocytes # (A) 0.4 k/uL (0-1.0); Monocytes % (A) 3 %; Neutrophils # (A) 13.5 k/uL (1.3-7.7); Neutrophils % (A) 89 %; RBC 4.56 m/uL (3.80-5.40); RDW 13.3 % (11.5-15.5); WBC 15.1 k/uL (3.8-10.6)
[2019-12-28 16:45] LABS: Albumin 3.6 g/dL (3.5-5.0); Calcium 8.4 mg/dL (8.4-10.2); Total Bilirubin 0.9 mg/dL (0.2-1.3); Total Protein 6.1 g/dL (6.3-8.2)
--- NOTE | 2019-12-28 16:48 | XR ---
EXAMINATION TYPE: XR chest 2V DATE OF EXAM: 12/28/2019 COMPARISON: Chest x-ray December 15, 2009. HISTORY: Worsening chest pain. TECHNIQUE: Frontal and lateral views of the chest are obtained. FINDINGS: There is chronic parenchymal change without suspicious new focal air space opacity, pleura l effusion, or pneumothorax seen. The cardiac silhouette size remains enlarged with atherosclerotic and ectatic thoracic aorta redemonstrated. Overlying sternal wires and mediastinal clips again seen . The osseous structures remain demineralized. Partial visualization surgical change left shoulder le helder. IMPRESSION: Cardiomegaly and chronic changes without new acute pulmonary process.
[2019-12-28 16:49] LABS: Platelet Count 405 k/uL (150-450)
[2019-12-28 16:50] LABS: INR 1.1 (<1.2); Prothrombin Time 10.8 sec (9.0-12.0)
--- NOTE | 2019-12-28 16:50 | ED ---
General Adult HPI - General Chief complaint: Recheck/Abnormal Lab/Rx Stated complaint: chest pain Time Seen by Provider: 12/28/19 16:24 Source: patient, family, RN notes reviewed, old records reviewed Mode of arrival: wheelchair Limitations: no limitations - History of Present Illness Initial comments: 84-year-old female presented for evaluation of right shoulder pain and mid back pain., This is been ongoing for several weeks. Patient and her daughter have been out of hospitals over the past month with this complaint. No vomiting. No fever. She was diagnosed with urinary tract infection, he was on antibiotics. She received workup for chest pain evaluation on previous admission. Patient's daughter states the rest of physician's office today but her mother could not wait secondary to the pain in her right shoulder and mid back. Patient is a DO NOT RESUSCITATE - Related Data Home Medications Medication Instructions Recorded Confirmed Atorvastatin [Lipitor] 20 mg PO HS 11/25/14 12/15/19 Apixaban [Eliquis] 2.5 mg PO BID 02/27/17 12/15/19 Losartan [Cozaar] 50 mg PO BID 12/15/19 12/15/19 Previous Rx's Medication Instructions Recorded Cefuroxime Axetil [Ceftin] 500 mg PO BID 3 Days #6 tab 12/17/19 Allergies Allergy/AdvReac Type Severity Reaction Status Date / Time ciprofloxacin HCl Allergy Mild Itching Verified 12/28/19 16:20 [From Cipro] adhesive AdvReac Mild Itching Verified 12/28/19 16:20 Review of Systems ROS Statement: Those systems with pertinent positive or pertinent negative responses have been documented in the HPI. ROS Other: All systems not noted in ROS Statement are negative. Past Medical History Past Medical History: Coronary Artery Disease (CAD), CVA/TIA, GI Bleed, Hearing Disorder / Deafness, Hyperlipidemia, Hypertension, Musculoskeletal Disorder, Osteoarthritis (OA) Additional Past Medical History / Comment(s): PVD. PEPTIC ULCER DISEASE. ULCERATIVE COLITIS. 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 History of Any Multi-Drug Resistant Organisms: None Reported Past Surgical History: Appendectomy, Coronary Bypass/CABG, Hysterectomy, Joint Replacement, Tonsillectomy Additional Past Surgical History / Comment(s): Carotid Artery on Left. BILATERAL STENTS FOR PVD. QUAD CABG 1995. COLONOSCOPY, EGD. LT SHOULDER REPLACEMENT. polyp removed from rectum Past Anesthesia/Blood Transfusion Reactions: No Reported Reaction Past Psychological History: No Psychological Hx Reported Smoking Status: Former smoker Past Alcohol Use History: None Reported Past Drug Use History: None Reported - Past Family History Sister(s) Family Medical History: Cancer Father Family Medical History: No Reported History Additional Family Medical History / Comment(s): . General Exam Limitations: no limitations General appearance: alert, in no apparent distress Head exam: Present: atraumatic, normocephalic Eye exam: Present: normal appearance, PERRL, EOMI ENT exam: Present: normal exam Neck exam: Present: normal inspection. Absent: tenderness, meningismus Respiratory exam: Present: normal lung sounds bilaterally. Absent: respiratory distress, wheezes Cardiovascular Exam: Present: normal rhythm, tachycardia GI/Abdominal exam: Present: soft. Absent: distended, tenderness, guarding, rebound, rigid Extremities exam: Present: normal inspection, normal capillary refill, other (Distal pulses 2+, symmetric). Absent: pedal edema Neurological exam: Present: alert, oriented X3, CN II-XII intact. Absent: motor sensory deficit Psychiatric exam: Present: agitated, anxious Skin exam: Present: warm, dry, intact. Absent: cyanosis, diaphoretic Course Vital Signs 12/28/19 12/28/19 12/28/19 16:20 16:57 17:11 Temperature 97.7 F Pulse Rate 112 H 78 86 Respiratory 26 H 16 15 Rate Blood Pressure 152/111 76/35 95/40 O2 Sat by Pulse 96 98 93 L Oximetry 12/28/19 12/28/19 17:25 17:36 Temperature Pulse Rate Respiratory Rate Blood Pressure 90/45 109/42 O2 Sat by Pulse Oximetry EKG Findings - EKG Comments: EKG Findings:: EKG sinus tachycardia with PVC rate 104, NE interval 124, QRS duration 88 QTC 457, no ST segment elevation Medical Decision Making - Medical Decision Making 84-year-old female with repeat ER visit for right shoulder pain. Patient's daughter is concerned about her mother's comfort. Patient is a DO NOT RESUSCITATE. I discussed the patient's wishes with her daughter. She really just wants her mother to be comfortable, the patient has voiced that she no longer wants to live. She is not suicidal. Workup in the emergency department reveals chest x-ray with cardiomegaly, she has a leukocytosis, no pneumonia on x-ray, urinalysis pending. She has a stable hemoglobin, she has a increasing creatinine from baseline. Troponin negative 1. At this point I believe the patient and her daughters wishes are that she would be comfortable. We discussed the possibility of a hospice consult, and the patient's daughter is agreeable with this. She will be admitted for IV hydration, symptomatic treatment, and hospice consult. - Lab Data Result diagrams: 12/28/19 16:13 12/28/19 16:13 Lab Results 12/28/19 12/28/19 12/28/19 Range/Units 16:13 16:13 16:13 WBC 15.1 H (3.8-10.6) k/uL RBC 4.56 (3.80-5.40) m/uL Hgb 12.9 (11.4-16.0) gm/dL Hct 40.4 (34.0-46.0) % MCV 88.5 (80.0-100.0) fL MCH 28.2 (25.0-35.0) pg MCHC 31.9 (31.0-37.0) g/dL RDW 13.3 (11.5-15.5) % Plt Count 405 D (150-450) k/uL Neutrophils % 89 % Lymphocytes % 7 % Monocytes % 3 % Eosinophils % 0 % Basophils % 0 % Neutrophils # 13.5 H (1.3-7.7) k/uL Lymphocytes # 1.1 (1.0-4.8) k/uL Monocytes # 0.4 (0-1.0) k/uL Eosinophils # 0.0 (0-0.7) k/uL Basophils # 0.0 (0-0.2) k/uL PT 10.8 (9.0-12.0) sec INR 1.1 (<1.2) APTT 21.3 L (22.0-30.0) sec Sodium 136 L (137-145) mmol/L Potassium 4.0 (3.5-5.1) mmol/L Chloride 97 L (98-107) mmol/L Carbon Dioxide 28 (22-30) mmol/L Anion Gap 11 mmol/L BUN 44 H (7-17) mg/dL Creatinine 1.21 H (0.52-1.04) mg/dL Est GFR (CKD-EPI)AfAm 47 (>60 ml/min/1.73 sqM) Est GFR (CKD-EPI)NonAf 41 (>60 ml/min/1.73 sqM) Glucose 169 H (74-99) mg/dL Calcium 8.4 (8.4-10.2) mg/dL Magnesium 2.0 (1.6-2.3) mg/dL Total Bilirubin 0.9 (0.2-1.3) mg/dL AST 35 (14-36) U/L ALT 28 (4-34) U/L Alkaline Phosphatase 87 (38-126) U/L Troponin I (0.000-0.034) ng/mL Total Protein 6.1 L (6.3-8.2) g/dL Albumin 3.6 (3.5-5.0) g/dL 12/28/19 Range/Units 16:13 WBC (3.8-10.6) k/uL RBC (3.80-5.40) m/uL Hgb (11.4-16.0) gm/dL Hct (34.0-46.0) % MCV (80.0-100.0) fL MCH (25.0-35.0) pg MCHC (31.0-37.0) g/dL RDW (11.5-15.5) % Plt Count (150-450) k/uL Neutrophils % % Lymphocytes % % Monocytes % % Eosinophils % % Basophils % % Neutrophils # (1.3-7.7) k/uL Lymphocytes # (1.0-4.8) k/uL Monocytes # (0-1.0) k/uL Eosinophils # (0-0.7) k/uL Basophils # (0-0.2) k/uL PT (9.0-12.0) sec INR (<1.2) APTT (22.0-30.0) sec Sodium (137-145) mmol/L Potassium (3.5-5.1) mmol/L Chloride (98-107) mmol/L Carbon Dioxide (22-30) mmol/L Anion Gap mmol/L BUN (7-17) mg/dL Creatinine (0.52-1.04) mg/dL Est GFR (CKD-EPI)AfAm (>60 ml/min/1.73 sqM) Est GFR (CKD-EPI)NonAf (>60 ml/min/1.73 sqM) Glucose (74-99) mg/dL Calcium (8.4-10.2) mg/dL Magnesium (1.6-2.3) mg/dL Total Bilirubin (0.2-1.3) mg/dL AST (14-36) U/L ALT (4-34) U/L Alkaline Phosphatase (38-126) U/L Troponin I 0.025 (0.000-0.034) ng/mL Total Protein (6.3-8.2) g/dL Albumin (3.5-5.0) g/dL Disposition Clinical Impression: UTI (urinary tract infection), Chronic pain, Dehydration, SANDRA (acute kidney injury) Disposition: ADMITTED IP TO THIS [facility] Condition: Stable Is patient prescribed a controlled substance at d/c from ED?: No Referrals: Champ Merritt MD [Primary Care Provider] - 1-2 days Decision to Admit Reason: Admit from EC Decision Date: 12/28/19 Decision Time: 17:46
[2019-12-28 16:51] LABS: Partial Thromboplastin Time 21.3 sec (22.0-30.0)
[2019-12-28] MEDS ORDERED: SODIUM CHLORIDE 0.9% 500 ML 500 ML IV STA (17:01)
[2019-12-28] MEDS ORDERED: cefTRIAXone IN SWFI 1,000 MG/10 ML SYRINGE IVP STA (17:32)
[2019-12-28] MEDS ORDERED: ONDANSETRON 4 MG/2 ML VIAL IVP PRN (17:37)
[2019-12-28] MEDS ORDERED: NALOXONE 0.4 MG/ML 1 ML VIAL IV PRN (17:37)
[2019-12-28] MEDS ORDERED: MORPHINE SULFATE 4 MG/ML SYRINGE IV PRN (17:37)
[2019-12-28] MEDS ORDERED: LORazepam 2 MG/ML INJ IV PRN (17:37)
[2019-12-28] MEDS: SODIUM CHLORIDE 0.9% 1,000 ML IV SCH (17:54)
[2019-12-29] MEDS: SODIUM CHLORIDE 0.9% 1,000 ML IV SCH (08:51)
[2019-12-29 11:42] VITALS: BMI 27.4
[2019-12-29] MEDS ORDERED: ACETAMINOPHEN TAB 500 MG TAB PO PRN (12:18)
[2019-12-29] MEDS: CITALOPRAM HYDROBROMIDE 10 MG TAB PO SCH (13:40)
--- NOTE | 2019-12-29 14:01 | P.HPIM ---
History of Present Illness 83-year-old pleasant female was brought in with multiple nonspecific complaints as per the daughter patient was having an throat pain patient also comparing of shoulder pain back pain and chest pain. Patient was extensively evaluated during his recent hospital and patient is a concurrent syndromes. Patient chest pain is musculoskeletal nature appears to be coming from the back constant pain patient appears to be mostly depressed and she believes her daughter will be and doesn't want to live anymore 1 the doctors to give her something so that she will diet patient admits to being severely depressed, she would kill he rself if he she knows how to do it means to do it. Her main issues appears to be mainly depression age-related. Patient has good memory patient and family wanted the to be comfort care and hospice only although patient is obviously depressed. Patient is bit dehydrated probably secondary to posttraumatic I'm holding off on the SARAH inhibitor and patient will be started on IV fluids, psychiatric will be consulted along with one-on-one sitter Review of Systems REVIEW OF SYSTEMS: CONSTITUTIONAL: No fever, no malaise, no fatigue. HEENT: No recent visual problems or hearing problems. Denied any sore throat. CARDIOVASCULAR: No orthopnea, PND, no palpitations, no syncope. PULMONARY: No shortness of breath, no cough, no hemoptysis. GASTROINTESTINAL: No diarrhea, no nausea, no vomiting, no abdominal pain. NEUROLOGICAL: No headaches, no weakness, no numbness. HEMATOLOGICAL: Denies any bleeding or petechiae. GENITOURINARY: Denies any burning micturition, frequency, or urgency. MUSCULOSKELETAL/RHEUMATOLOGICAL: As mentioned above ENDOCRINE: Denies any polyuria or polydipsia. The rest of the 14-point review of systems is negative. Past Medical History Past Medical History: Coronary Artery Disease (CAD), Chest Pain / Angina, CVA/TIA, GI Bleed, Hearing Disorder / Deafness, Hyperlipidemia, Hypertension, Musculoskeletal Disorder, Osteoarthritis (OA) Additional Past Medical History / Comment(s): PVD. PEPTIC ULCER DISEASE. ULCERATIVE COLITIS. 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 History of Any Multi-Drug Resistant Organisms: None Reported Past Surgical History: Appendectomy, Coronary Bypass/CABG, Heart Catheterization, Hysterectomy, Joint Replacement, Tonsillectomy Additional Past Surgical History / Comment(s): Carotid Artery on Left. BILATERAL STENTS FOR PVD. QUAD CABG 1995. COLONOSCOPY, EGD. LT SHOULDER REPLACEMENT. polyp removed from rectum Past Anesthesia/Blood Transfusion Reactions: No Reported Reaction Past Psychological History: Anxiety, Depression Smoking Status: Former smoker Past Alcohol Use History: None Reported Additional Past Alcohol Use History / Comment(s): SMOKED FOR 40 YEARS., QUIT IN 1991. STATES 1 PACK COULD LAST 1 MONTH. Past Drug Use History: None Reported - Past Family History Sister(s) Family Medical History: Cancer Father Family Medical History: No Reported History Additional Family Medical History / Comment(s): . Medications and Allergies Home Medications Medication Instructions Recorded Confirmed Type Atorvastatin [Lipitor] 20 mg PO DAILY 11/25/14 12/28/19 History Apixaban [Eliquis] 2.5 mg PO BID 02/27/17 12/28/19 History Losartan [Cozaar] 50 mg PO BID 12/15/19 12/28/19 History Famotidine [Pepcid AC] 10 mg PO BID 12/28/19 12/28/19 History Furosemide [Lasix] 40 mg PO DAILY 12/28/19 12/28/19 History predniSONE See Taper PO DAILY 12/28/19 12/28/19 History Allergies Allergy/AdvReac Type Severity Reaction Status Date / Time adhesive Allergy Mild Rash/Hives Verified 12/28/19 18:02 ciprofloxacin HCl Allergy Mild Rash/Hives Verified 12/28/19 18:02 [From [facility]] Physical Exam Vitals: Vital Signs Temp Pulse Pulse Resp BP BP Pulse Ox 12/29/19 05:22 97.5 F L 67 18 145/67 97 12/28/19 20:55 97.4 F L 63 18 130/62 97 12/28/19 19:29 97.8 F 69 16 106/57 96 12/28/19 18:19 68 16 130/41 95 12/28/19 17:36 109/42 12/28/19 17:25 90/45 12/28/19 17:11 86 15 95/40 93 L 12/28/19 16:57 78 16 76/35 98 12/28/19 16:20 97.7 F 112 H 26 H 152/111 96 Intake and Output 12/28/19 12/29/19 12/29/19 22:59 06:59 14:59 Intake Total 240 Balance 240 Intake: Oral 240 Other: Voiding Method Toilet Incontinent # Voids 1 1 Weight 70.307 kg 70.307 kg PHYSICAL EXAMINATION: GENERAL: The patient is alert and oriented x3, not in any acute distress. Well developed, well nourished. She is obviously depressed and tearful appears to be more concerned that she is more of a burden for her daughter HEENT: Pupils are round and equally reacting to light. EOMI. No scleral icterus. No conjunctival pallor. Normocephalic, atraumatic. No pharyngeal erythema. No thyromegaly. CARDIOVASCULAR: S1 and S2 present. No murmurs, rubs, or gallops. PULMONARY: Chest is clear to auscultation, no wheezing or crackles. ABDOMEN: Soft, nontender, nondistended, normoactive bowel sounds. No palpable organomegaly. MUSCULOSKELETAL: No joint swelling or deformity. EXTREMITIES: No cyanosis, clubbing, or pedal edema. NEUROLOGICAL: Gross neurological examination did not reveal any focal deficits. SKIN: No rashes. Results CBC & Chem 7: 12/28/19 16:13 12/28/19 16:13 Labs: Abnormal Lab Results - Last 24 Hours (Table) 12/28/19 12/28/19 12/28/19 Range/Units 16:13 16:13 16:13 WBC 15.1 H (3.8-10.6) k/uL Neutrophils # 13.5 H (1.3-7.7) k/uL APTT 21.3 L (22.0-30.0) sec Sodium 136 L (137-145) mmol/L Chloride 97 L (98-107) mmol/L BUN 44 H (7-17) mg/dL Creatinine 1.21 H (0.52-1.04) mg/dL Glucose 169 H (74-99) mg/dL Total Protein 6.1 L (6.3-8.2) g/dL Thrombosis Risk Factor Assmnt - Choose All That Apply Any of the Below Risk Factors Present?: Yes Each Factor Represents 1 point: Obesity (BMI >25) Other Risk Factors: Yes Each Risk Factor Represents 3 Points: Age 75 years or older Other congenital or acquired thrombophilia - If yes, enter type in comment: No Thrombosis Risk Factor Assessment Total Risk Factor Score: 4 Thrombosis Risk Factor Assessment Level: Moderate Risk Assessment and Plan Plan: -Acute renal failure probably 70 to poor fair oral intake patient will be started on IV fluids as mentioned overly above we'll repeat basic metabolic profile again tomorrow. -Chest pain musculoskeletal secondary to severe osteoarthritis and back pain which is radiating to his chest and part of her pain complaints may be related to her depression to. Repeat 2 more sets of troponins and an EKG patient was a extensive evaluated during her recent hospital physician for coronary artery disease. -Major depression an elderly: Patient will be started on citalopram as patient the is severely depressed and constant his psychiatric and the also sitter because of her suicidal ideations as mentioned above -Leukocytosis reactive no evidence of urinary tract infection or any other infection -CVAT in the past patient is on Eliquis I believe is secondary to atrial fibrillation which will be resumed patient is sinus rhythm rate controlled at this time -Hyperlipidemia -Hypertension
[2019-12-29] MEDS: traMADol 50 MG TAB PO PRN (18:07)
[2019-12-29] MEDS: APIXABAN 2.5 MG TABLET PO SCH (21:20)
[2019-12-29] MEDS: FAMOTIDINE 20 MG TAB PO SCH (21:20)
[2019-12-30] MEDS: SODIUM CHLORIDE 0.9% 1,000 ML IV SCH ×2 (05:26→15:16)
[2019-12-30] MEDS: APIXABAN 2.5 MG TABLET PO SCH ×2 (08:20→20:55)
[2019-12-30] MEDS: CITALOPRAM HYDROBROMIDE 10 MG TAB PO SCH (08:20)
[2019-12-30] MEDS: FAMOTIDINE 20 MG TAB PO SCH ×2 (08:20→20:55)
[2019-12-30] MEDS: ATORVASTATIN 20 MG TAB PO SCH (08:20)
[2019-12-30] MEDS: traMADol 50 MG TAB PO PRN ×2 (08:20→22:45)
[2019-12-30 09:15] LABS: Calcium 7.8 mg/dL (8.4-10.2); Potassium 3.9 mmol/L (3.5-5.1)
--- NOTE | 2019-12-30 12:15 | P.CN ---
Psychiatric Consult - . Consult date: 12/30/19 Consult:: IDENTIFYING DATA: She is an 84-year-old female admitted to medicine service with multiple nonspecific complaints including shoulder pain, back pain and chest pain. She is known to medicine service from prior admi ssions. She was discharged from medicine on 12/17/2019. The hospitalist submitted a consult to psychiatry because she appears depressed and expresses feelings of hopelessness and helplessness. HISTORY OF PRESENT ILLNESS: I reviewed the medical record, interviewed the patient and spoke with her daughter, Nicci. She feels bored and useless and does not feel as though her life is worthwhile. Several times during interview she expressed a wish that she wished she were or that someone would give her something told that she would . She described persistent feelings of depression, worthlessness, hopelessness and helplessness. She has s felt depressed since the of her 2 years ago and talked about experiencing other losses that year including the of her sister and [id number]. She is no longer able to engage in many former activities including sewing and reading. Her daughter reported that she was an avid reader up until a month ago. He complains of being bored. Since her CVA she had difficulty following television shows and is recently only watched game shows. She reports that she has no enjoyment in life and sees no future for herself. She feels that her memory is worse than others and more impaired since her CVA.. She has a general sense of tension but denied periods of increased anxiety consistent with panic attack. She denied experiencing obsessions or compulsions. She denied such psychotic symptoms as auditory, visual or olfactory hallucinations, ideas reference etc. She denied experiencing periods of confusion. Her daughter is concerned by her general withdrawal and talk of and suicide. She has been depressed since the of her 2 years ago, but depression has worsened over the last few months. Her daughter stated that towards the end of his life her father was asked to be "put out of his misery" and was talking about having some "end his life". Patient denied current suicide intent or plan. She denied history of suicide attempts or gestures. She does not drink and has never used drugs on her own to get high, help her sleep or change her mood. We completed the Geriatric Depression Inventory her total score was 11 consistent with moderately severe depression. PAST PSYCHIATRIC HISTORY: Denied. Her daughter stated she refused her primary's recommendation for an antidepressant PAST MEDICAL HISTORY: She has mental multiple medical problems including coronary artery disease, history of CVA, GI bleed, hearing loss, hyperlipidemia, hypertension, chronic back pain, osteoarthritis, ulcerative colitis, appendectomy, coronary bypass, heart catheterization, hysterectomy, and joint replacement.. ALLERGIES: Ciprofloxacin. SUBSTANCE USE HISTORY: Denied. FAMILY PSYCHIATRIC/SUBSTANCE USE HISTORY: She is unaware of family history of mental illness. SOCIAL HISTORY: She was for 62 years. 2 years ago. She has 3 children. She lives with her daughter. MENTAL STATUS EXAM: She presented as a pale and frail appearing elderly woman who was sitting in a recliner. She made eye contact and attended to interview. She had a wet cough intermittently during the interview. She had a hearing impairment. She had no prominent physical abnormalities. She had a depressed facial expression. She was alert and oriented to person, place and time. She showed psychomotor retardation but no abnormal movements. I did not evaluate her gait. Her speech was spontaneous with decreased rate and volume. Her affect was depressed and unreactive. She describes suicidal ideation and wishes. She denied homicidal ideation. She expressed feelings of hopelessness, helplessness and worthlessness. She ruminated about her physical impairment in multiple medical problems. She didn't express ideas reference, paranoid ideation or delusions. Her thinking was abstract and associations were coherent, logical and goal directed. She denied hallucinations did not appear to be responding to internal stimuli. We completed the [facility] Orientation Memory and Concentration test. Her total weighted error score was 9; total weighted error score greater than 11 is consistent with dementia. She knew the month and year. She was able to register memory phrase "Yovani Carpio, [address] [place] [address]." She was unable to estimate the time within 1 hour to correct time. She is able to count backwards from 21 but had difficulty naming the months the year backwards beginning with October. She recalled 3 elements of memory phrase. IMPRESSIONS: She is a 84-year-old woman with multiple medical problems and presented to the hospital with vague medical complaints, suicidal ideation and wishes. She has signs and symptoms of a major depressive disorder including persistent feelings of hopelessness, helplessness, worthlessness, decreased energy and impaired concentration, anhedonia and fatigue. She has passive suicidal ideation and wishes without intent or plan. Is no evidence of psychosis. At the [facility] depression is worsened with her failing health. There is no indication for transfer to the psychiatric unit at this time but she would benefit from outpatient mental health treatment. DIAGNOSIS: Major depressive disorder moderate single episode PLAN: Discontinue one-to-one. Continue citalopram 10 mg daily and titrated according to clinical response and tolerance. Refer her for outpatient mental health treatment preferably with a geropsychiatrist if one is available. Thank you for the consult. Will follow. 12/30/19 11:48 12/30/19 12:15
--- NOTE | 2019-12-30 14:41 | P.PN ---
Subjective Progress Note Date: 12/30/19 Principal diagnosis: 83-year-old pleasant female was brought in with multiple nonspecific complaints as per the daughter patient was having an throat pain patient also comparing of shoulder pain back pain and chest pain. Patient was extensively evaluated during his recent hospital and patient is a concurrent syndromes. Patient chest pain is musculoskeletal nature appears to be coming from the back constant pain patient appears to be mostly depressed and she believes her daughter will be and doesn't want to live anymore 1 the doctors to give her something so that she will diet patient admits to being severely depressed, she would kill herself if he she knows how to do it means to do it. Her main issues appears to be mainly depression age-related. Patient has good memory patient and family wanted the to be comfort care and hospice only although patient is obviously depressed. Patient is bit dehydrated probably secondary to posttraumatic I'm holding off on the SARAH inhibitor and patient will be started on IV fluids, psychiatric will be consulted along with one-on-one sitter. 12/30/2019 Patient is sitting up in the chair currently without one-on-one sitter awaiting psychiatric consult at this time. Patient states that she is having a somewhat better day and has been eating and drinking a little more. Patient continues to be depressed and have sadness denies any suicidal ideation at this time. Patient states that she lives with her daughter and will be returning there once discharged. Creatinine has improved today and is currently 0.87. Patient is maintained on normal saline at 100 mL per hour. No reports of chest pain, shortness of breath, or palpitations. Patient is afebrile. No reports of nausea or vomiting and patient is tolerating diet. Objective - Vital Signs Vital signs: Vital Signs Temp 97.9 F 12/30/19 14:31 Pulse 60 12/30/19 14:31 Resp 16 12/30/19 14:31 BP 136/62 12/30/19 14:31 Pulse Ox 95 12/30/19 14:31 Intake & Output 12/29/19 12/30/19 12/30/19 18:59 06:59 18:59 Intake Total 240 300 Balance 240 300 Weight 70.307 kg Intake: Oral 240 300 Other: Voiding Method Toilet Toilet Bedside Commode Bedside Commode Incontinent Incontinent # Voids 1 1 2 - Exam GENERAL: The patient is alert and oriented x3, not in any acute distress. Well developed, well nourished. She is obviously depressed although is in a little better spirits today. Patient has been eating and drinking a little more than normal HEENT: Pupils are round and equally reacting to light. EOMI. No scleral icterus. No conjunctival pallor. Normocephalic, atraumatic. No pharyngeal erythema. No thyromegaly. CARDIOVASCULAR: S1 and S2 present. No murmurs, rubs, or gallops. PULMONARY: Chest is clear to auscultation, no wheezing or crackles. ABDOMEN: Soft, nontender, nondistended, normoactive bowel sounds. No palpable organomegaly. MUSCULOSKELETAL: No joint swelling or deformity. EXTREMITIES: No cyanosis, clubbing, or pedal edema. NEUROLOGICAL: Gross neurological examination did not reveal any focal deficits. SKIN: No rashes. - Labs CBC & Chem 7: 12/28/19 16:13 12/30/19 08:14 Labs: Abnormal Lab Results - Last 24 Hours (Table) 12/30/19 Range/Units 08:14 Sodium 136 L (137-145) mmol/L Chloride 108 H (98-107) mmol/L BUN 21 H (7-17) mg/dL Glucose 124 H (74-99) mg/dL Calcium 7.8 L (8.4-10.2) mg/dL Assessment and Plan Assessment: -Acute renal failure probably secondary to poor oral intake. Patient creatinine improved today and is currently 0.87 and is maintained on normal saline at 100 mL per hour. Encouraged oral intake and patient has been drinking more water today per staff -Chest pain musculoskeletal secondary to severe osteoarthritis and back pain which is radiating to her chest and part of her pain complaints may be related to her depression to. Repeat troponins have been trending down -Major depression in elderly: Patient will be started on citalopram as she is severely depressed and psychiatry was consulted and is pending. -Leukocytosis reactive no evidence of urinary tract infection or any other in fection -CVAT in the past patient is on Eliquis I believe is secondary to atrial fibrillation which will be resumed patient is sinus rhythm rate controlled at this time -Hyperlipidemia -Hypertension Plan: Continue current medications and symptomatic treatment. Awaiting psychiatric consult. Spoke to the patient about discharge planning and she states that she will be returning home with her daughter as she lives with her once discharged. Case management and social work are aware. Further recommendations to follow. Possible discharge in 24 hours.
[2019-12-30 22:13] VITALS: RESP 20
[2019-12-31] MEDS: SODIUM CHLORIDE 0.9% 1,000 ML IV SCH ×2 (00:08→08:12)
[2019-12-31 05:19] VITALS: BP 146/67; PULSE 70; TEMP 98.3
[2019-12-31] MEDS: ATORVASTATIN 20 MG TAB PO SCH (08:09)
[2019-12-31] MEDS: CITALOPRAM HYDROBROMIDE 10 MG TAB PO SCH (08:09)
[2019-12-31] MEDS: FAMOTIDINE 20 MG TAB PO SCH (08:09)
[2019-12-31] MEDS: APIXABAN 2.5 MG TABLET PO SCH (08:09)
[2019-12-31] MEDS: traMADol 50 MG TAB PO PRN (11:42)
--- NOTE | 2019-12-31 15:16 | P.DS ---
Providers Date of admission: 12/30/19 08:33 Expected date of discharge: 12/31/19 Attending physician: Bahman Faustin MD Consults: 12/29/19 12:13 Consult Physician Routine Consulting Provider: Yovani Mc Consult Reason/Comments: depression Do you want consulting provider notified?: Yes [facility]: Final diagnosis -Acute renal failure probably secondary to poor oral intake. -Chest pain musculoskeletal secondary to severe osteoarthritis and back pain -Major depression in elderly -Leukocytosis reactive no evidence of urinary tract infection or any other infection -CVA in the past -Hyperlipidemia -Hypertension Discharge disposition Patient is being discharged in a stable condition with guarded prognosis to home and will follow-up with Dr. Merritt in the outpatient setting upon discharge. Patient will also need to follow-up with possible geriatric psych in the outpatient setting. She will continue with home care with the [facility] visiting nurses. Total time taken is 35 minutes. History of present illness 83-year-old pleasant female was brought in with multiple nonspecific complaints as per the daughter patient was having an throat pain patient also comparing of shoulder pain back pain and chest pain. Patient was extensively evaluated during his recent hospital and patient is a concurrent syndromes. Patient chest pain is musculoskeletal nature appears to be coming from the back constant pain patient appears to be mostly depressed and she believes her daughter will be and doesn't want to live anymore 1 the doctors to give her something so that she will patient admits to being severely depressed, she would kill herself if he she knows how to do it means to do it. Her main issues appears to be mainly depression age-related. Patient has good memory patient and family wanted the to be comfort care and hospice only although patient is obviously depressed. Patient is bit dehydrated probably secondary to posttraumatic I'm holding off on the SARAH inhibitor and patient will be started on IV fluids, psychiatric will be consulted along with one-on-one sitter. 12/31/2019 She was seen and evaluated by psychiatry recommending outpatient follow-up with possible geriatric psychiatry facility along with continuing citalopram 10 mg daily. Patient instructed to follow-up with primary care provider Dr. Merritt in the outpatient setting upon discharge. Discussed with the patient at length about encouraging oral intake and patient verbalizes understanding. Patient will continue with outpatient home care is her and her daughter are agreeable to now. [facility] visiting nurses will be following. Currently no reports of chest pain, shortness of breath, or palpitations. Patient is afebrile. No reports of nausea or vomiting. Patient currently denying suicidal thoughts although continues to be severely depressed. On exam vital signs are stable. Temp is 98.3F, pulse is 70, respirations are 20, blood pressure 146/67, oxygen saturation is 92% on room air. Cardio S1, S2 are present. Respiratory is clear to auscultation. Abdomen is soft and nontender. Nervous system shows no focal deficits. Please refer to medication reconciliation sheet for a list of medications. Patient Condition at Discharge: Stable Plan - Discharge Summary New Discharge Prescriptions: New Citalopram Hydrobromide [CeleXA] 10 mg PO DAILY 30 Days #30 tab traMADol HCl [Ultram] 50 mg PO QID PRN #16 tab PRN Reason: Pain/Discomfort Continue Atorvastatin [Lipitor] 20 mg PO DAILY Apixaban [Eliquis] 2.5 mg PO BID Losartan [Cozaar] 50 mg PO BID Famotidine [Pepcid AC] 10 mg PO BID Discontinued predniSONE See Taper PO DAILY Furosemide [Lasix] 40 mg PO DAILY Discharge Medication List Atorvastatin [Lipitor] 20 mg PO DAILY 11/25/14 [History] Apixaban [Eliquis] 2.5 mg PO BID 02/27/17 [History] Losartan [Cozaar] 50 mg PO BID 12/15/19 [History] Famotidine [Pepcid AC] 10 mg PO BID 12/28/19 [History] Citalopram Hydrobromide [CeleXA] 10 mg PO DAILY 30 Days #30 tab 12/31/19 [Rx] traMADol HCl [Ultram] 50 mg PO QID PRN #16 tab 12/31/19 [Rx] Follow up Appointment(s)/Referral(s): Champ Merritt MD [Primary Care Provider] - 01/04/20 1:00 pm [facility] Visiting Nurse, [NON-STAFF] - Patient Instructions/Handouts: Depression (DC) Activity/Diet/Wound Care/Special Instructions: Activity Limited until follow-up Follow-up with primary care provider upon discharge Follow-up with geriatric psychiatrist in the outpatient setting upon discharge- literature given Continue with citalopram Encourage oral intake of meals and fluids Continue to hold Lasix until follow-up with primary care provider Discharge Disposition: HOME WITH HOME HEALTH SERVICES
== END 2019-12-31 12:05 | disposition home health service (06) | DRG 683 ==
LOC: EC 16:13 → INTOOBSV 17:37 → 6NMEDSUR 17:37 → OBSVTOIN 12-30 08:33
PROVIDERS: ADMIT Internal Medicine; ATTEND Internal Medicine
DX: N17.9 Acute kidney failure, unspecified (principal); F32.1 Major depressive disorder, single episode, moderate; I25.10 Atherosclerotic heart disease of native coronary artery without angina pectoris; E78.5 Hyperlipidemia, unspecified; F41.9 Anxiety disorder, unspecified; H91.90 Unspecified hearing loss, unspecified ear; M19.90 Unspecified osteoarthritis, unspecified site; I10 Essential (primary) hypertension; E86.0 Dehydration; G89.29 Other chronic pain; I48.91 Unspecified atrial fibrillation; I73.9 Peripheral vascular disease, unspecified; Z66 Do not resuscitate; Z96.612 Presence of left artificial shoulder joint; Z79.01 Long term (current) use of anticoagulants; Z79.899 Other long term (current) drug therapy; Z88.1 Allergy status to other antibiotic agents; Z91.048 Other nonmedicinal substance allergy status; Z90.710 Acquired absence of both cervix and uterus; Z87.891 Personal history of nicotine dependence; Z87.11 Personal history of peptic ulcer disease; Z95.1 Presence of aortocoronary bypass graft; Z86.73 Personal history of transient ischemic attack (TIA), and cerebral infarction without residual deficits; Z90.49 Acquired absence of other specified parts of digestive tract; Z90.89 Acquired absence of other organs; Z98.890 Other specified postprocedural states; Z80.9 Family history of malignant neoplasm, unspecified
CPT/HCPCS: 36415; 71046; 80048; 80053; 83735; 84484; 85025; 85610; 85730; 93005; 96361; 96374; 96375; 99285

== ENCOUNTER → 2020-01-13 | Outpatient (CLI) | payer MEDICARE, BC ==
[2020-01-13 10:44] LABS: Basophils % (A) 1 %; Eosinophils # (A) 0.2 k/uL (0-0.7); Eosinophils % (A) 3 %; HCT 37.8 % (34.0-46.0); HGB 11.5 gm/dL (11.4-16.0); Hypochromasia Slight; Lymphocytes # (A) 1.2 k/uL (1.0-4.8); Lymphocytes % (A) 17 %; MCH 27.9 pg (25.0-35.0); MCHC 30.5 g/dL (31.0-37.0); MCV 91.4 fL (80.0-100.0); Mean Platelet Volume 8.4; Monocytes # (A) 0.4 k/uL (0-1.0); Monocytes % (A) 5 %; Neutrophils # (A) 5.2 k/uL (1.3-7.7); Neutrophils % (A) 72 %; Platelet Count 218 k/uL (150-450); RBC 4.14 m/uL (3.80-5.40); RDW 14.3 % (11.5-15.5); WBC 7.2 k/uL (3.8-10.6)
== END | disposition home or self-care (01) ==
LOC: LABWHC1 09:43
PROVIDERS: ATTEND Nurse Practitioner
DX: K51.90 Ulcerative colitis, unspecified, without complications (principal)
CPT/HCPCS: 36415; 85025; 86140

== ENCOUNTER → 2020-06-01 | Outpatient (CLI) | payer MEDICARE, BC ==
--- NOTE | 2020-06-01 11:29 | XR ---
EXAMINATION TYPE: XR chest 2V DATE OF EXAM: 06/01/2020 CLINICAL HISTORY: MRI clearance TECHNIQUE: Frontal and lateral views of the chest are obtained. COMPARISON: Chest radiograph 12/28/2019 FINDINGS: Sternotomy wires. Left shoulder arthroplasty hardware incompletely visualized. Left medias tinal surgical clips. The cardiomediastinal silhouette is within normal limits for size. There is harriett cification and ectasia of the thoracic aorta redemonstrated. Pulmonary vasculature is normal. There i s no focal air space opacity, pleural effusion, or pneumothorax seen. The osseous structures are inta ct. IMPRESSION: 1. No acute cardiopulmonary process. 2. Sternotomy wires, mediastinal surgical clips, and left shoulder arthroplasty hardware.
== END | disposition home or self-care (01) ==
LOC: RADXRMAIN 10:55
PROVIDERS: ATTEND Physical Medicine & Rehabilitation
DX: Z96.612 Presence of left artificial shoulder joint (principal)
CPT/HCPCS: 71046

== ENCOUNTER 2020-08-08 06:03 | Inpatient (IN) | payer MEDICARE, BC ==
[2020-08-08 06:14] VITALS: TEMP 98.3
[2020-08-08] MEDS ORDERED: SODIUM CHLORIDE 0.9% 500 ML 500 ML IV STA (06:21)
[2020-08-08] MEDS ORDERED: MORPHINE SULFATE 2 MG/ML SYRINGE IVP STA (06:21)
[2020-08-08] MEDS ORDERED: ONDANSETRON 4 MG/2 ML VIAL IVP STA (06:21)
--- NOTE | 2020-08-08 06:39 | ED ---
Chest Pain HPI - General Chief Complaint: Chest Pain Stated Complaint: Chest pain Time Seen by Provider: 08/08/20 06:08 Source: patient, EMS, RN notes reviewed Mode of arrival: EMS Limitations: no limitations - History of Present Illness Initial Comments: This 84-year-old female presents emergency Department with chief complaint chest pain. Patient states that she was recently hospitalized for heart attack. Patient did not have any stenting at this time as is a subacute infarct. Patient states she's been having pain in her sides for several weeks. Patient states it seemed to worsen she did take 324 of aspirin. Patient was given nitro by EMS. Patient states that she has had a cough denies any shortness of breath. Patient states the pain is in her chest sides and back. Patient states this is the pain she's been having. She does admit to slight nausea denies any abdominal pain. Denies any leg swelling. Patient does have a history of DC, CABG. Patient is currently anticoagulated on Eliquis. - Related Data Home Medications Medication Instructions Recorded Confirmed Atorvastatin [Lipitor] 20 mg PO HS 11/25/14 08/08/20 Apixaban [Eliquis] 2.5 mg PO BID 02/27/17 08/08/20 Mesalamine 4.8 gm PO DAILY@1200 07/25/20 08/08/20 Nitrofurantoin Monohyd/M-Cryst 100 mg PO Q12HR 07/25/20 08/08/20 [Macrobid] traMADol HCL [Ultram] 25 mg PO BID PRN 07/25/20 08/08/20 Aspirin 325 mg PO DAILY PRN 08/08/20 08/08/20 Previous Rx's Medication Instructions Recorded Citalopram Hydrobromide [CeleXA] 10 mg PO DAILY 30 Days #30 tab 12/31/19 Clopidogrel [Plavix] 75 mg PO DAILY #30 tab 07/27/20 Losartan [Cozaar] 12.5 mg PO HS #30 tab 07/27/20 Metoprolol Tartrate [Lopressor] 25 mg PO TID #90 tab 07/27/20 Spironolactone [Aldactone] 25 mg PO DAILY #30 tab 07/27/20 Allergies Allergy/AdvReac Type Severity Reaction Status Date / Time adhesive Allergy Mild Rash/Hives Verified 08/08/20 07:59 ciprofloxacin HCl Allergy Mild Rash/Hives Verified 08/08/20 07:59 [From Cipro] Review of Systems ROS Statement: Those systems with pertinent positive or pertinent negative responses have been documented in the HPI. ROS Other: All systems not noted in ROS Statement are negative. Past Medical History Past Medical History: Coronary Artery Disease (CAD), Chest Pain / Angina, CVA/TIA, GI Bleed, Hearing Disorder / Deafness, Hyperlipidemia, Hypertension, Musculoskeletal Disorder, Osteoarthritis (OA) Additional Past Medical History / Comment(s): PVD. PEPTIC ULCER DISEASE. ULCERATIVE COLITIS. 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 History of Any Multi-Drug Resistant Organisms: None Reported Past Surgical History: Appendectomy, Coronary Bypass/CABG, Heart Catheterization, Hysterectomy, Joint Replacement, Tonsillectomy Additional Past Surgical History / Comment(s): Carotid Artery on Left. BILATERAL STENTS FOR PVD. QUAD CABG 1995. COLONOSCOPY, EGD. LT SHOULDER REPLACEMENT. polyp removed from rectum Past Anesthesia/Blood Transfusion Reactions: No Reported Reaction Past Psychological History: Anxiety, Depression Smoking Status: Former smoker Past Alcohol Use History: None Reported Past Drug Use History: None Reported - Past Family History Sister(s) Family Medical History: Cancer Father Family Medical History: No Reported History Additional Family Medical History / Comment(s): . General Exam Limitations: no limitations General appearance: alert, in no apparent distress Head exam: Present: atraumatic, normocephalic, normal inspection Eye exam: Present: normal appearance, PERRL, EOMI. Absent: scleral icterus, conjunctival injection, periorbital swelling ENT exam: Present: normal exam, normal oropharynx, mucous membranes moist Neck exam: Present: normal inspection, full ROM. Absent: tenderness, meningismus, lymphadenopathy Respiratory exam: Present: normal lung sounds bilaterally. Absent: respiratory distress, wheezes, rales, rhonchi, stridor Cardiovascular Exam: Present: normal rhythm, tachycardia (Heart rate 108 exam), normal heart sounds. Absent: systolic murmur, diastolic murmur, rubs, gallop, clicks GI/Abdominal exam: Present: soft, normal bowel sounds. Absent: distended, tenderness, guarding, rebound, rigid Extremities exam: Present: pedal edema (Minimal) Neurological exam: Present: alert, oriented X3 Skin exam: Present: warm, dry, intact, normal color. Absent: rash Course Vital Signs 08/08/20 08/08/20 06:07 08:02 Temperature 98.3 F Pulse Rate 130 H 112 H Respiratory 26 H 20 Rate Blood Pressure 122/82 109/74 O2 Sat by Pulse 96 96 Oximetry Chest Pain MDM - MDM 84-year-old female presented from for chest pain. Patient on have large pleural effusion the left with pneumonia. Patient does have leukocytosis a 34,000, lactic acidosis. Patient was given 2 g of Rocephin was also started on Zosyn and azithromycin for concerns of pseudomonas infection and she was recently hospitalized. Patient noted to have aneurysm on x-ray complaining of back pain CT was obtained no evidence of dissection. Radiologist stated he was difficult to exclude possibility of PE in the left lower though she is currently anticoagulated on Eliquis and will be continued on Eliquis. Patient be hospitalized case discussed with Dr. Swan. Disposition Clinical Impression: Pneumonia, Pleural effusion, Chest pain, CHF (congestive heart failure) Disposition: ADMITTED IP TO THIS HOSP Condition: Serious Referrals: Champ Merritt MD [Primary Care Provider] - 1-2 days
[2020-08-08 06:55] LABS: Basophils # (A) 0.1 k/uL (0-0.2); Basophils % (A) 0 %; Eosinophils # (A) 0.4 k/uL (0-0.7); Eosinophils % (A) 1 %; HCT 38.9 % (34.0-46.0); HGB 11.7 gm/dL (11.4-16.0); Hypochromasia Marked; Lymphocytes # (A) 0.2 k/uL (1.0-4.8); Lymphocytes % (A) 1 %; MCH 27.7 pg (25.0-35.0); MCV 92.3 fL (80.0-100.0); Mean Platelet Volume 7.5; Monocytes # (A) 0.5 k/uL (0-1.0); Monocytes % (A) 1 %; Neutrophils # (A) 33.4 k/uL (1.3-7.7); Neutrophils % (A) 96 %; Platelet Count 294 k/uL (150-450); RBC 4.22 m/uL (3.80-5.40); RDW 13.6 % (11.5-15.5); WBC 34.7 k/uL (3.8-10.6)
[2020-08-08 07:05] LABS: Albumin 3.1 g/dL (3.5-5.0); Calcium 8.2 mg/dL (8.4-10.2); Magnesium 1.7 mg/dL (1.6-2.3); Potassium 4.6 mmol/L (3.5-5.1); Total Bilirubin 0.9 mg/dL (0.2-1.3); Total Protein 5.6 g/dL (6.3-8.2)
[2020-08-08 07:06] LABS: INR 1.1 (<1.2); Partial Thromboplastin Time 23.4 sec (22.0-30.0)
[2020-08-08] MEDS ORDERED: MORPHINE SULFATE 2 MG/ML SYRINGE IVP ONE (07:16)
--- NOTE | 2020-08-08 07:42 | XR ---
EXAMINATION TYPE: XR chest 2V DATE OF EXAM: 08/08/2020 COMPARISON: 07/25/2020 TECHNIQUE: PA and lateral views submitted. HISTORY: Chest pain FINDINGS: There is bilateral lateral infiltrate and small effusion. Heart is enlarged and there is atherosclero tic change aorta. Prominence of the hilum. Interstitial pattern noted. Diffuse osteopenia with postsu rgical change left shoulder. No pneumothorax. Hypertrophic and degenerative change spine. Findings johnson ggest an aneurysm of the ascending aorta measuring approximately 4.4 cm. IMPRESSION: 1. Bilateral infiltrate and pleural effusion with cardiomegaly correlate for mild CHF. Otherwise cons ider pneumonia. 2. There is a aneurysm of the ascending aorta measuring approximately 4.4 cm
[2020-08-08] MEDS ORDERED: NITROGLYCERIN SL TABS 0.4 MG TAB SUBLINGUAL PRN (07:50)
[2020-08-08] MEDS ORDERED: PNEUMONIA PROTOCOL UTILIZED 1 EACH MISC PO PRN (07:50)
[2020-08-08] MEDS ORDERED: AZITHROMYCIN 500 MG in SODIUM CHLORIDE 0.9% 250 ML IVPB STA (07:54)
[2020-08-08] MEDS ORDERED: PIPERACILLIN-TAZOBACTAM 3.375 GM in SODIUM CHLORIDE 0.9% 100 ML IVPB STA (07:54)
[2020-08-08 08:03] VITALS: RESP 20
[2020-08-08] MEDS ORDERED: HYDROcodone/APAP 5-325MG 1 EACH TAB PO PRN (08:29)
--- NOTE | 2020-08-08 08:51 | CT ---
EXAMINATION TYPE: CT angio chest DATE OF EXAM: 08/08/2020 COMPARISON: The 16th HISTORY: Shortness of breath and weakness. CT DLP: 315.3 mGycm CONTRAST: CT chest with contrast and 3D reconstruction with MIP imaging is performed with IV Contrast, patient injected with 65 mL of Isovue 370. Contrast-enhanced CT of the chest was performed through the course of the pulmonary arteries with lilly g and mediastinal window settings submitted. 3D reconstruction with MIP imaging was also performed. PULMONARY ARTERIES: There is a filling defect within the left lower lobe pulmonary arterial branch to 7 of 133. Pulmonary embolism is difficult to exclude. No additional filling defects seen. No evidenc e for saddle embolus. LUNGS: Bilateral pleural effusions are noted measuring approximately 5.7 cm on the left AP dimension and approximately 2.8 cm on the right. There is left lower lobe atelectasis and/or infiltrate. MEDIASTINUM: Atheromatous and ectatic change noted of the thoracic aorta. No evidence for aneurysm. T he heart is enlarged. No evidence for mediastinal mass. No mediastinal lymph nodes greater than 1c m. HILAR STRUCTURES: No evidence for mass. No hilar lymph nodes greater than 1 cm. UPPER ABDOMEN: No significant abnormality is seen. IMPRESSION: 1. Left lower lobe pulmonary embolism is difficult to exclude. 2. Cardiomegaly with bilateral pleural effusions and left lower lobe atelectasis and/or infiltrate.
[2020-08-08] MEDS ORDERED: traMADol 50 MG TAB PO PRN ×2 (08:54→10:20)
[2020-08-08] MEDS ORDERED: CLOPIDOGREL 75 MG TAB PO SCH (09:00)
[2020-08-08] MEDS ORDERED: SPIRONOLACTONE 25 MG TAB PO SCH (09:00)
[2020-08-08] MEDS ORDERED: CITALOPRAM HYDROBROMIDE 10 MG TAB PO SCH (09:00)
[2020-08-08] MEDS ORDERED: METOPROLOL TARTRATE 25 MG TAB PO SCH (09:00)
[2020-08-08] MEDS ORDERED: APIXABAN 2.5 MG TABLET PO SCH (09:00)
[2020-08-08 09:29] VITALS: BP 111/48; PULSE 99
[2020-08-08] MEDS ORDERED: ACETAMINOPHEN TAB 325 MG TAB PO PRN (10:21)
[2020-08-08] MEDS ORDERED: guaiFENesin-DM 100-10MG/5ML 10 ML CUP PO PRN (10:27)
[2020-08-08] MEDS ORDERED: FUROSEMIDE 10 MG/ML 4 ML VIAL IV SCH (10:45)
[2020-08-08] MEDS ORDERED: LORazepam 2 MG/ML INJ ONE (10:46)
--- NOTE | 2020-08-08 11:53 | P.HPIM ---
History of Present Illness 84-year-old female came in with compensative chest pain predominantly left side of the chest sharp in the severe back pain. Patient had a CAT scan of the chest which showed bilateral pedal pleural effusions and it was read as a small pulmonary emboli cannot be ruled out although patient clinical symptomology is not consistent with that and patient is on Eliquis patient has history of for myocardial infarction for couple weeks ago had the Serum troponin was 16 and at that time counseling her risk factors she was advised to follow medical therapy. Patient hasn't had EF of around 20%, with severe pulmonary hypertension. Patie nt prognosis overall is extremely poor. Patient has minimally elevated troponin of 0.1 her aunt during this hospital physician patient was also having diarrhea. Patient was started having pneumonia although pneumonia was not evident on x- ray causing her diarrhea patient probably has C. diff C. diff was ordered. Patient was also in heart failure was started on IV Lasix. Patient the clinical symptomatology of chest pain he. To be more mostly musculoskeletal. Although patient was started on heparin and cardiology was consulted. Shortly after arrival to ER patient did not feel well when to the bathroom felt nauseous shortly after that patient heart rate went down patient became nonresponsive but patient is DO NOT RESUSCITATE her daughter is at the bedside and discussed with the daughter and the daughter doesn't want any further intervention as per patient's wishes. As patient is DO NOT RESUSCITATE no further intervention was done patient initially was mildly bradycardic subsequently had pulseless electrical activity and then she subsequently . Patient will also having cough without any significant sputum production doesn't have any fever does have a highly elevated white blood cell count on admission. Review of Systems REVIEW OF SYSTEMS: CONSTITUTIONAL: No fever, no malaise, no fatigue. HEENT: No recent visual problems or hearing problems. Denied any sore throat. CARDIOVASCULAR: No orthopnea, PND, no palpitations, no syncope. PULMONARY: no hemoptysis. GASTROINTESTINAL: As mentioned in HPI NEUROLOGICAL: No headaches, no weakness, no numbness. HEMATOLOGICAL: Denies any bleeding or petechiae. GENITOURINARY: Denies any burning micturition, frequency, or urgency. MUSCULOSKELETAL/RHEUMATOLOGICAL: Denies any joint pain, swelling, or any muscle pain. ENDOCRINE: Denies any polyuria or polydipsia. The rest of the 14-point review of systems is negative. Past Medical History Past Medical History: Coronary Artery Disease (CAD), Chest Pain / Angina, Heart Failure, CVA/TIA, GI Bleed, Hearing Disorder / Deafness, Hyperlipidemia, Hypertension, Myocardial Infarction (AR), Musculoskeletal Disorder, Osteoarthritis (OA), Vascular Disorder Additional Past Medical History / Comment(s): Pt recently admtted to [facility] on 07/25/20 with subacute AR (anteroseptal) and mild chf. Other hx: 2015 CVA wtih slight poor vision/loss of L eye peripheral vision/difficulty judging distanc/some difficulty with understanding at times, PUD, ulcerative colitis, NEZ PERCE bilaterally-pt unsure if caused by CVA, herniated discs, low back pain, recent cervical pain, UTIs, vertigo Last Myocardial Infarction Date:: 07/25/20 History of Any Multi-Drug Resistant Organisms: None Reported Past Surgical History: Appendectomy, Coronary Bypass/CABG, Heart Catheterization, Hernia Repair, Hysterectomy, Joint Replacement, Tonsillectomy Additional Past Surgical History / Comment(s): ANGEL, 4 vessel CABG in 1995, L caratid endartectomy, bilateral tents common iliac arteries, EGD, colonoscopy/be nign rectal polyp, L total shoulder, bilateral cataract removals/lens implants, incisional hernia repair Past Anesthesia/Blood Transfusion Reactions: No Reported Reaction Smoking Status: Former smoker - Past Family History Sister(s) Family Medical History: Cancer Father Family Medical History: No Reported History Additional Family Medical History / Comment(s): Father was healthy and lived to be 87yrs old. Mother Family Medical History: Diabetes Mellitus Additional Family Medical History / Comment(s): Mother at the age of 61 yrs. Medications and Allergies Home Medications Medication Instructions Recorded Confirmed Type Atorvastatin [Lipitor] 20 mg PO HS 11/25/14 08/08/20 History Apixaban [Eliquis] 2.5 mg PO BID 02/27/17 08/08/20 History Citalopram Hydrobromide [CeleXA] 10 mg PO DAILY 30 Days #30 tab 12/31/1903/23 Rx Mesalamine 4.8 gm PO DAILY@1200 07/25/20 08/08/20 History Nitrofurantoin Monohyd/M-Cryst 100 mg PO Q12HR 07/25/20 08/08/20 History [Macrobid] traMADol HCL [Ultram] 25 mg PO BID PRN 07/25/20 08/08/20 History Clopidogrel [Plavix] 75 mg PO DAILY #30 tab 07/27/20 08/08/20 Rx Losartan [Cozaar] 12.5 mg PO HS #30 tab 07/27/20 08/08/20 Rx Metoprolol Tartrate [Lopressor] 25 mg PO TID #90 tab 07/27/20 08/08/20 Rx Spironolactone [Aldactone] 25 mg PO DAILY #30 tab 07/27/20 08/08/20 Rx Aspirin 325 mg PO DAILY PRN 08/08/20 08/08/20 History Allergies Allergy/AdvReac Type Severity Reaction Status Date / Time adhesive Allergy Mild Rash/Hives Verified 08/08/20 07:59 ciprofloxacin HCl Allergy Mild Rash/Hives Verified 08/08/20 07:59 [From [facility]] Physical Exam Vitals: Vital Signs Temp Pulse Pulse Resp BP BP Pulse Ox 08/08/20 09:00 98.3 F 108 H 20 112/76 96 08/08/20 08:58 97.7 F 99 16 111/48 97 08/08/20 08:02 112 H 20 109/74 96 08/08/20 06:07 98.3 F 130 H 26 H 122/82 96 Intake and Output 08/07/20 08/08/20 08/08/20 22:59 06:59 14:59 Other: Weight 70.307 kg 70.307 kg This examination as before her expiration PHYSICAL EXAMINATION: GENERAL: The patient is alert and oriented x3, mild respiratory distress. Well developed, well nourished. HEENT: Pupils are round and equally reacting to light. EOMI. No scleral icterus. No conjunctival pallor. Normocephalic, atraumatic. No pharyngeal erythema. No thyromegaly. CARDIOVASCULAR: S1 and S2 present. No murmurs, rubs, or gallops. Diffuse of accessory muscles of breathing I was unable to assess JVD clearly PULMONARY: Diminished air entry patient doesn't take a deep breath. ABDOMEN: Soft, nontender, nondistended, normoactive bowel sounds. No palpable organomegaly. MUSCULOSKELETAL: No joint swelling or deformity. EXTREMITIES: No cyanosis, clubbing, very minimal pedal edema NEUROLOGICAL: Gross neurological examination did not reveal any focal deficits. SKIN: No rashes. Results CBC & Chem 7: 08/08/20 06:40 08/08/20 06:40 Labs: Abnormal Lab Results - Last 24 Hours (Table) 08/08/20 08/08/20 08/08/20 Range/Units 06:40 06:40 06:40 WBC 34.7 H (3.8-10.6) k/uL MCHC 30.0 L (31.0-37.0) g/dL Neutrophils # 33.4 H (1.3-7.7) k/uL Lymphocytes # 0.2 L (1.0-4.8) k/uL Sodium 134 L (137-145) mmol/L Carbon Dioxide 20 L (22-30) mmol/L BUN 21 H (7-17) mg/dL Creatinine 1.14 H (0.52-1.04) mg/dL Glucose 169 H (74-99) mg/dL Plasma Lactic Acid Daryl (0.7-2.0) mmol/L Calcium 8.2 L (8.4-10.2) mg/dL Troponin I 0.107 H* (0.000-0.034) ng/mL Total Protein 5.6 L (6.3-8.2) g/dL Albumin 3.1 L (3.5-5.0) g/dL Lipase 15 L (23-300) U/L 08/08/20 08/08/20 Range/Units 08:00 09:54 WBC (3.8-10.6) k/uL MCHC (31.0-37.0) g/dL Neutrophils # (1.3-7.7) k/uL Lymphocytes # (1.0-4.8) k/uL Sodium (137-145) mmol/L Carbon Dioxide (22-30) mmol/L BUN (7-17) mg/dL Creatinine (0.52-1.04) mg/dL Glucose (74-99) mg/dL Plasma Lactic Acid Daryl 2.2 H* (0.7-2.0) mmol/L Calcium (8.4-10.2) mg/dL Troponin I 0.121 H* (0.000-0.034) ng/mL Total Protein (6.3-8.2) g/dL Albumin (3.5-5.0) g/dL Lipase (23-300) U/L Thrombosis Risk Factor Assmnt - Choose All That Apply Any of the Below Risk Factors Present?: Yes Each Factor Represents 1 point: Heart failure (<1month), Obesity (BMI >25), Serious lung disease incl. pneumonia (< 1month) Other Risk Factors: Yes Each Risk Factor Represents 3 Points: Age 75 years or older Other congenital or acquired thrombophilia - If yes, enter type in comment: No Thrombosis Risk Factor Assessment Total Risk Factor Score: 6 Thrombosis Risk Factor Assessment Level: High Risk Assessment and Plan Plan: -Chest pain with the possibility of non-ST elevation microinfarction patient clinically appeared to have musculoskeletal chest pain later may have had myocardial infarctionssubsequently patient was on IV heparin before the for that. -Congestive heart failure chronic systolic dysfunction with acute exacerbation of around 25% -Diarrhea possibility of cystoscopy deficit colitis -Bilateral pleural effusions secondary to CHF -Atrial fibrillation on anticoagulation -Low possibility of PE clinically -Severe pulmonary hypertension -Severe coronary artery disease with a possible acute myocardial infarction -Hyperlipidemia Hypertension -Peripheral vascular disease -Patient is DO NOT RESUSCITATE Lactic acidosis: Probably secondary to C. diff colitis Patient overall prognosis is extremely poor and I agreed with the family the patient shouldn't be resuscitated. Patient subsequently became unresponsive, mildly bradycardic and pulseless electrical activity and subsequently . Patient probably had another myocardial infarction. Patient on August 2020 at 10:55 AM
--- NOTE | 2020-08-08 11:54 | P.DS ---
Providers Date of admission: 08/08/20 07:55 Attending physician: Ninoska Rachel Consults: 08/08/20 07:51 Consult Physician Urgent Consulting Provider: Jose Coombs Consult Reason/Comments: chest pain Do you want consulting provider notified?: Yes Primary care physician: René Oakes [facility] Course: Please refer to HPI for further details Patient Condition at Discharge: Serious Plan - Discharge Summary Discharge Rx Participant: No New Discharge Prescriptions: No Action Atorvastatin [Lipitor] 20 mg PO HS Apixaban [Eliquis] 2.5 mg PO BID Citalopram Hydrobromide [CeleXA] 10 mg PO DAILY 30 Days #30 tab Nitrofurantoin Monohyd/M-Cryst [Macrobid] 100 mg PO Q12HR Mesalamine 4.8 gm PO DAILY@1200 traMADol HCL [Ultram] 25 mg PO BID PRN PRN Reason: Pain Spironolactone [Aldactone] 25 mg PO DAILY #30 tab Losartan [Cozaar] 12.5 mg PO HS #30 tab Metoprolol Tartrate [Lopressor] 25 mg PO TID #90 tab Clopidogrel [Plavix] 75 mg PO DAILY #30 tab Aspirin 325 mg PO DAILY PRN PRN Reason: Pain Discharge Medication List Atorvastatin [Lipitor] 20 mg PO HS 11/25/14 [History] Apixaban [Eliquis] 2.5 mg PO BID 02/27/17 [History] Citalopram Hydrobromide [CeleXA] 10 mg PO DAILY 30 Days #30 tab 12/31/19 [Rx] Mesalamine 4.8 gm PO DAILY@1200 07/25/20 [History] Nitrofurantoin Monohyd/M-Cryst [Macrobid] 100 mg PO Q12HR 07/25/20 [History] traMADol HCL [Ultram] 25 mg PO BID PRN 07/25/20 [History] Clopidogrel [Plavix] 75 mg PO DAILY #30 tab 07/27/20 [Rx] Losartan [Cozaar] 12.5 mg PO HS #30 tab 07/27/20 [Rx] Metoprolol Tartrate [Lopressor] 25 mg PO TID #90 tab 07/27/20 [Rx] Spironolactone [Aldactone] 25 mg PO DAILY #30 tab 07/27/20 [Rx] Aspirin 325 mg PO DAILY PRN 08/08/20 [History] Follow up Appointment(s)/Referral(s): Champ Merritt MD [Primary Care Provider] - 1-2 days
[2020-08-08] MEDS ORDERED: MESALAMINE 1.2 GM PO SCH (12:00)
[2020-08-08] MEDS ORDERED: LOSARTAN 25 MG TAB PO SCH (21:00)
[2020-08-08] MEDS ORDERED: ATORVASTATIN 20 MG TAB PO SCH (21:00)
[2020-08-09] MEDS ORDERED: ASPIRIN 325 MG TAB PO SCH (09:00)
--- NOTE | 2020-08-10 12:04 | CDI ---
Documentation Clarification Form Date: 08/10/2020 10:54:00 AM From: Richa Colon Phone: If you have a question about this query, please contact Ade Pugh Visually Impaired Teacher at [phone] between 8am and 5pm. Admit Date: 08/08/2020 07:55:00 AM Patient Name: Kiki Cervantes Visit Number: [id number] Discharge Date: 08/08/2020 01:20:00 PM ATTENTION: The Clinical Documentation Specialists (CDI) and [facility] Coding Staff appreciate your assistance in clarifying documentation. Please respond to the clarification below the line at the bottom and electronically sign. The CDI & [facility] Coding staff will review the response and follow-up if needed. Please note: Queries are made part of the Legal Health Record. If you have any questions, please contact the author of this message via ITS. Dr. Anant Swan Atrial Fibrillation is documented in the H an P and patient on anticoagulation. Please clarify type of atrial fibrillation. History/Risk Factors: Anterior TN within four weeks, current possible NSTEMI, CHF exacerbation, CAD with CABG EKG/telemetry: Sinus Tachycardia HR on admission 130 BPM Treatment: home anticoagulation Consults: In your professional opinion, can you please clarify the type of Atrial Fibrillation, if known? Chronic/Permanent Paroxysmal Persistent Other, please specify Unable to determine Unable to determine MTDD
--- NOTE | 2020-08-10 12:23 | CDI ---
Documentation Clarification Form Date: 08/10/2020 11:06:00 AM From: Richa Colon Phone: If you have a question about this query, please contact Ade Pugh Carton Forming Machine Helper at [phone] between 8am and 5pm. Admit Date: 08/08/2020 07:55:00 AM Patient Name: Kiki Cervantes Visit Number: [id number] Discharge Date: 08/08/2020 01:20:00 PM ATTENTION: The Clinical Documentation Specialists (CDI) and [facility] Coding Staff appreciate your assistance in clarifying documentation. Please respond to the clarification below the line at the bottom and electronically sign. The CDI & [facility] Coding staff will review the response and follow-up if needed. Please note: Queries are made part of the Legal Health Record. If you have any questions, please contact the author of this message via ITS. Dr. Anant Swan Pneumonia was documented in ED notes. H and P confusion documentation regarding pneumonia: "Patient was started having pneumonia although pneumonia not evident on CXR causing her diarrhea patient probably has C. Diff." Please clarify if patient had pneumonia or was it ruled out. History/Risk Factors: NSTEMI, CHF, hx. of pneumonia Vital signs: 98.3 F, 130 BPM, 26, 122/82, 96% 3NC WBC/Left shift: 34.7 X-ray: bilateral infiltrate Treatment: Rocephin, Zosyn, Azithromycin for concerns of pseudomonas infection Antibiotics Rocephiin, Zoayn, Azithromycin O2 3 NC In order to capture the severity of condition, please clarify if patient had pneumonia or was it ruled out. Pneumonia Pneumonia ruled out Bacterial Pneumonia, specify causal organism (if known) Gram Negative Pneumonia Due to Strep ?Due to Staph ?Due to E. Coli ?Other bacteria (please specify) Viral Pneumonia, specify casual organism (if known) Healthcare Acquired Pneumonia/Pneumonia, unspecified Other, please specify Unable to determine Unable to determine MTDD
--- NOTE | 2020-08-10 12:45 | CDI ---
Documentation Clarification Form Date: 08/10/2020 11:30:00 AM From: Richa Colon Phone: If you have a question about this query, please contact Ade Pugh, Hydrodynamicist at [phone] between 8am and 5pm. Admit Date: 08/08/2020 07:55:00 AM Patient Name: Kiki Cervantes Visit Number: [id number] Discharge Date: 08/08/2020 01:20:00 PM ATTENTION: The Clinical Documentation Specialists (CDI) and [facility] Coding Staff appreciate your assistance in clarifying documentation. Please respond to the clarification below the line at the bottom and electronically sign. The CDI & [facility] Coding staff will review the response and follow-up if needed. Please note: Queries are made part of the Legal Health Record. If you have any questions, please contact the author of this message via ITS. Dr. Anant Swan Per ED note "Radiologist stated he was difficult to exclude possibility of PE in the left lower, she is currently anticoagulated on Eliquis and will be continued on Eliquis." Per H and P CT scan of the chest showed bilateral pleural effusions and it was read as a small pulmonary emboli cannot be ruled out although patient's symptomology not consistent with PE, Per H and P Plan: Low possibility of PE clinically. Please clarify if PE was ruled out or did in your clinical opinion did patient have a PE. History/Risk Factors: Sharp Chest pain and severe back pain. Radiology findings: Left lower lobe PE is difficult to exclude Vital Signs: 98.3 F, 130 bpm, 26, 122/82, 96 3NC Treatment: Patient on Eliquis and Plavix - home meds In your professional opinion, can you please clarify if PE was ruled out or was PE a possibility or not excluded. PE PE ruled out Other, please specify Unable to determine No PE MTDD
== END 2020-08-08 13:20 | disposition expired ==
LOC: EC 06:03 → 3SCARD 07:55
PROVIDERS: ADMIT Hospitalist; ATTEND Hospitalist
DX: I22.2 Subsequent non-ST elevation (NSTEMI) myocardial infarction (principal); I50.23 Acute on chronic systolic (congestive) heart failure; A04.72 Enterocolitis due to Clostridium difficile, not specified as recurrent; E87.2 Acidosis; K51.90 Ulcerative colitis, unspecified, without complications; I21.09 ST elevation (STEMI) myocardial infarction involving other coronary artery of anterior wall; I11.0 Hypertensive heart disease with heart failure; Z87.891 Personal history of nicotine dependence; Z66 Do not resuscitate; E78.5 Hyperlipidemia, unspecified; H91.90 Unspecified hearing loss, unspecified ear; I25.10 Atherosclerotic heart disease of native coronary artery without angina pectoris; I27.20 Pulmonary hypertension, unspecified; I46.9 Cardiac arrest, cause unspecified; I48.91 Unspecified atrial fibrillation; I73.9 Peripheral vascular disease, unspecified; I69.398 Other sequelae of cerebral infarction; H53.9 Unspecified visual disturbance; Z95.1 Presence of aortocoronary bypass graft; M19.90 Unspecified osteoarthritis, unspecified site; Z98.42 Cataract extraction status, left eye; Z98.41 Cataract extraction status, right eye; Z96.1 Presence of intraocular lens; Z87.19 Personal history of other diseases of the digestive system; R00.1 Bradycardia, unspecified; F32.9 Major depressive disorder, single episode, unspecified; F41.9 Anxiety disorder, unspecified; I71.4 Abdominal aortic aneurysm, without rupture; Z87.01 Personal history of pneumonia (recurrent); Z96.612 Presence of left artificial shoulder joint; Z90.89 Acquired absence of other organs; Z80.9 Family history of malignant neoplasm, unspecified; Z83.3 Family history of diabetes mellitus; Z87.11 Personal history of peptic ulcer disease; Z88.6 Allergy status to analgesic agent; Z79.01 Long term (current) use of anticoagulants; Z79.02 Long term (current) use of antithrombotics/antiplatelets; Z79.82 Long term (current) use of aspirin; Z79.899 Other long term (current) drug therapy; Z90.710 Acquired absence of both cervix and uterus; Z95.828 Presence of other vascular implants and grafts; E66.9 Obesity, unspecified; Z68.27 Body mass index [BMI] 27.0-27.9, adult
CPT/HCPCS: 36415; 71046; 71275; 80053; 83605; 83690; 83735; 83880; 84484; 85025; 85610; 85730; 87040; 93005; 96365; 96375; 96376; 99285